=== PATIENT | male | born 1940 | race Caucasian/White ===

== ENCOUNTER 2018-04-05 14:08 | Inpatient (IN) | payer MEDICARE, OTHER ==
[2018-04-05] MEDS ORDERED: Bisacodyl 10 MG Supp RECTAL PRN (20:17)
[2018-04-05] MEDS ORDERED: Magnesium Hydroxide 400 MG/5 ML Susp 30 ML Cup PO PRN (20:17)
--- NOTE | 2018-04-05 20:33 | PCM.HP ---
H&P History of Present Illness - General Date of Service: 04/05/18 Admit Problem/Dx: Admission Diagnosis/Problem Admission Diagnosis/Problem Back pain Source of Information: Patient History Limitations: Reports: No Limitations - History of Present Illness Initial Comments - Free Text/Narative: 77-year-old male with a past medical history of atrial fibrillation, lumbar stenosis who recently had a lumbar laminectomy at [facility] in [place] and was admitted for continued physical therapy and occupational therapy as a swing bed patient. He complains of neck pain, located in the mid back a lot around the waistline. Pain is 7/10, sharp, intermittent. He has no chest pain, no shortness of breath, no leg swelling. Quality: Reports: Sharp Severity: Moderate Context: Reports: Other (Recent surgery) - Related Data Allergies/Adverse Reactions: Allergies Allergy/AdvReac Type Severity Reaction Status Date / Time No Known Allergies Allergy Unverified 04/28/15 15:07 Home Medications: Home Meds Digoxin 125 mcg PO DAILY 03/20/18 [History] Docusate Sodium 200 mg PO BID 03/20/18 [History] Simvastatin [Zocor] 40 mg PO BEDTIME 03/20/18 [History] Warfarin [Coumadin] 3 mg PO DAILY 03/20/18 [History] Acetaminophen [Tylenol] 650 mg PO Q4H PRN 04/05/18 [History] Amoxicillin/Clavulanate K [Augmentin 875-125 MG] 1 tab PO Q12HR 04/05/18 [ History] Aspirin 81 mg PO DAILY 04/05/18 [History] Bisacodyl 10 mg RECTAL DAILY PRN 04/05/18 [History] ClonazePAM [KlonoPIN] 0.5 mg PO BEDTIME 04/05/18 [History] Levothyroxine [Synthroid] 50 mcg PO ACBREAKFAST 04/05/18 [History] Magnesium Hydroxide [Milk of Magnesia] 30 ml PO DAILY PRN 04/05/18 [History] Metoprolol Succinate 75 mg PO BID 04/05/18 [History] Pantoprazole Sodium [Protonix] 40 mg PO ACBREAKFAST 04/05/18 [History] Polyethylene Glycol 3350 [MiraLAX] 17 gm PO DAILY 04/05/18 [History] QUEtiapine [SEROquel] 50 mg PO QPM 04/05/18 [History] Sennosides/Docusate Sodium [Senna-Docusate Sodium] 2 tab PO BEDTIME 04/05/18 [ History] oxyCODONE 5 mg PO Q4HR PRN 04/05/18 [History] Past Medical History Cardiovascular History: Reports: Afib, Heart Failure, Heart Murmur, High Cholesterol, [place] Neurological History: Reports: Other (See Below) Other Neuro History: acute confusion Endocrine/Metabolic History: Reports: Hypothyroidism - Past Surgical History Endocrine Surgical History: Reports: None Neurological Surgical History: Reports: Laminectomy, Lumbar Spine, Spinal Fusion Musculoskeletal Surgical History: Reports: Other (See Below) Other Musculoskeletal Surgeries/Procedures:: lumbar laminectomy and fusion. Social & Family History - Family History Family Medical History: Noncontributory - Tobacco Use Smoking Status *Q: Never Smoker Second Hand Smoke Exposure: No - Caffeine Use Caffeine Use: Reports: Coffee - Recreational Drug Use Recreational Drug Use: No H&P Review of Systems - Review of Systems: Review Of Systems: See Below General: Reports: No Symptoms HEENT: Reports: No Symptoms Pulmonary: Reports: No Symptoms Cardiovascular: Reports: No Symptoms Gastrointestinal: Reports: No Symptoms Genitourinary: Reports: No Symptoms Musculoskeletal: Reports: Back Pain Exam - Exam Exam: See Below - Vital Signs Weight: 75.251 kg - Exam General: Alert, Oriented HEENT: Conjunctiva Clear Neck: Supple, Trachea Midline Lungs: Clear to Auscultation Cardiovascular: Regular Rate GI/Abdominal Exam: Normal Bowel Sounds Problem List Initiated/Reviewed/Updated: Yes Orders Last 24hrs: Active Orders 24 hr Category Date Time Status Patient Status [ADT] Routine ADT 04/05/18 20:26 Ordered Ambulate [RC] ASDIRECTED Care 04/05/18 20:24 Ordered Bedrest Bathroom Privileges [RC] ASDIRECTED Care 04/05/18 20:24 Ordered Oxygen Therapy [RC] PRN Care 04/05/18 20:26 Ordered Up With Assistance [RC] ASDIRECTED Care 04/05/18 20:24 Ordered Up ad Kay [RC] ASDIRECTED Care 04/05/18 20:24 Ordered Up to Chair [RC] ASDIRECTED Care 04/05/18 20:24 Ordered VTE/DVT Education [RC] PER UNIT ROUTINE Care 04/05/18 20:26 Ordered Vital Signs [RC] PER UNIT ROUTINE Care 04/05/18 20:26 Ordered OT Evaluation and Treatment [CONS] Routine Cons 04/05/18 20:24 Ordered PT Evaluation and Treatment [CONS] Routine Cons 04/05/18 20:24 Ordered Regular Diet [DIET] Diet 04/05/18 Dinner Ordered Acetaminophen [Tylenol] Med 04/05/18 20:17 Ordered 650 mg PO Q4H PRN Acetaminophen [Tylenol] Med 04/05/18 21:00 Ordered 650 mg PO TID Amoxicillin/Clavulanate K [Augmentin 875 MG/125 MG] Med 04/05/18 21:00 Ordered 1 tab PO Q12HR Aspirin Med 04/06/18 09:00 Ordered 81 mg PO DAILY Bisacodyl [Dulcolax] Med 04/05/18 20:17 Ordered 10 mg RECTAL DAILY PRN Digoxin [Lanoxin] Med 04/06/18 09:00 Ordered 125 mcg PO DAILY Docusate Sodium [Colace] Med 04/05/18 21:00 Ordered 200 mg PO BID Docusate Sodium/Sennosides [Senna Plus] Med 04/05/18 21:00 Ordered 2 tab PO BEDTIME Ibuprofen [Motrin] Med 04/05/18 20:21 Ordered 400 mg PO Q8H PRN Levothyroxine [Synthroid] Med 04/06/18 06:00 Ordered 50 mcg PO ACBREAKFAST Lidocaine 5% [Lidoderm 5%] Med 04/05/18 20:30 Ordered 700 mg TOP Q24H Magnesium Hydroxide [Milk of Magnesia] Med 04/05/18 20:17 Ordered 30 ml PO DAILY PRN Metoprolol Succinate [Toprol XL] Med 04/05/18 21:00 Ordered 75 mg PO BID Pantoprazole [ProTONIX] Med 04/06/18 06:00 Ordered 40 mg PO ACBREAKFAST Polyethylene Glycol 3350 [MiraLAX] Med 04/06/18 09:00 Ordered 17 gm PO DAILY QUEtiapine [SEROquel] Med 04/05/18 20:30 Ordered 50 mg PO QPM Simvastatin [Zocor] Med 04/05/18 21:00 Ordered 40 mg PO BEDTIME Warfarin Med 04/06/18 09:00 Ordered 3 mg PO DAILY oxyCODONE Med 04/05/18 20:17 Ordered 5 mg PO Q4HR PRN Resuscitation Status Routine Resus Stat 04/05/18 20:24 Ordered Medication Orders Acetaminophen (Tylenol) 650 mg PO Q4H PRN PRN Reason: Pain Acetaminophen (Tylenol) 650 mg PO TID [facility] Amoxicillin/Clavulanate Potassium (Augmentin 875 Mg/125 Mg) 1 tab PO Q12HR [facility] Aspirin (Aspirin) 81 mg PO DAILY [facility] Bisacodyl (Dulcolax) 10 mg RECTAL DAILY PRN PRN Reason: Constipation Digoxin (Lanoxin) 125 mcg PO DAILY [facility] Docusate Sodium (Colace) 200 mg PO BID [facility] Ibuprofen (Motrin) 400 mg PO Q8H PRN PRN Reason: Pain (moderate 4-6) Levothyroxine Sodium (Synthroid) 50 mcg PO ACBREAKFAST [facility] Lidocaine (Lidoderm 5%) 700 mg TOP Q24H [facility] Magnesium Hydroxide (Milk Of Magnesia) 30 ml PO DAILY PRN PRN Reason: Constipation Metoprolol Succinate (Toprol Xl) 75 mg PO BID [facility] Non-Formulary Medication (Warfarin) 3 mg PO DAILY [facility] Oxycodone HCl (Oxycodone) 5 mg PO Q4HR PRN PRN Reason: Pain Pantoprazole Sodium (Protonix) 40 mg PO ACBREAKFAST [facility] Polyethylene Glycol (Miralax) 17 gm PO DAILY [facility] Quetiapine Fumarate (Seroquel) 50 mg PO QPM [facility] Senna/Docusate Sodium (Senna Plus) 2 tab PO BEDTIME [facility] Simvastatin (Zocor) 40 mg PO BEDTIME [facility] Assessment/Plan Comment:: 77-year-old male with past medical history of atrial fibrillation, lumbar stenosis status post laminectomy admitted as an outpatient. #Back pain; lumbar stenosis status post recent laminectomy Continue current pain regimen - when necessary Tylenol, when necessary oxycodone Add lidocaine patch Continue PT/OT #Atrial fibrillation Currently rate controlled, continue metoprolol plus digoxin regimen. Anticoagulation: Continue Coumadin #DVT prophylaxis On Coumadin
[2018-04-05] MEDS: oxyCODONE 5 MG Tab PO PRN (21:01)
[2018-04-05] MEDS: Amoxicillin/Clavulanate K 875-125 MG Tab PO SCH (21:33)
[2018-04-05] MEDS: QUEtiapine 25 MG Tab PO SCH (21:34)
[2018-04-05] MEDS: Docusate Sodium 100 MG Cap PO SCH (21:34)
[2018-04-05] MEDS: Acetaminophen 325 MG Tab PO SCH (21:35)
[2018-04-05] MEDS: Simvastatin 40 MG Tab PO SCH (21:36)
[2018-04-05] MEDS: Metoprolol Succinate 25 MG Tab.ER PO SCH (21:37)
[2018-04-05] MEDS: Lidocaine 5% 700 MG Patch TOP SCH (21:39)
[2018-04-06] MEDS: oxyCODONE 5 MG Tab PO PRN ×5 (01:16→21:29)
[2018-04-06] MEDS: Ibuprofen 400 MG Tab PO PRN ×3 (02:52→23:25)
[2018-04-06] MEDS: Levothyroxine 50 MCG Tab PO SCH (05:39)
[2018-04-06] MEDS: Pantoprazole 40 MG Tab.CR PO SCH (05:39)
[2018-04-06] MEDS: Aspirin 81 MG Tab.Chew PO SCH (08:40)
[2018-04-06] MEDS: Digoxin 125 MCG Tab PO SCH (08:42)
[2018-04-06] MEDS: Acetaminophen 325 MG Tab PO SCH ×3 (08:42→20:46)
[2018-04-06] MEDS: Amoxicillin/Clavulanate K 875-125 MG Tab PO SCH ×2 (08:45→20:42)
[2018-04-06] MEDS: Polyethylene Glycol 3350 Powder 17 GM Packet PO SCH (08:45)
[2018-04-06] MEDS: Metoprolol Succinate 25 MG Tab.ER PO SCH ×2 (08:45→20:44)
[2018-04-06] MEDS: Docusate Sodium 100 MG Cap PO SCH ×2 (08:45→20:43)
[2018-04-06] MEDS: Cyclobenzaprine 10 MG Tab PO PRN ×2 (11:42→20:44)
[2018-04-06] MEDS: Lidocaine 5% 700 MG Patch TOP SCH (20:40)
[2018-04-06] MEDS: QUEtiapine 25 MG Tab PO SCH (20:43)
[2018-04-06] MEDS: Simvastatin 40 MG Tab PO SCH (20:44)
[2018-04-07] MEDS: oxyCODONE 5 MG Tab PO PRN ×5 (02:04→22:31)
[2018-04-07] MEDS: Acetaminophen 325 MG Tab PO PRN (04:55)
[2018-04-07] MEDS: Levothyroxine 50 MCG Tab PO SCH (05:00)
[2018-04-07] MEDS: Pantoprazole 40 MG Tab.CR PO SCH (05:00)
[2018-04-07] MEDS: Digoxin 125 MCG Tab PO SCH (09:02)
[2018-04-07] MEDS: Amoxicillin/Clavulanate K 875-125 MG Tab PO SCH ×2 (09:02→20:58)
[2018-04-07] MEDS: Acetaminophen 325 MG Tab PO SCH ×3 (09:02→20:56)
[2018-04-07] MEDS: Aspirin 81 MG Tab.Chew PO SCH (09:02)
[2018-04-07] MEDS: Metoprolol Succinate 25 MG Tab.ER PO SCH ×2 (09:03→21:13)
[2018-04-07] MEDS: Cyclobenzaprine 10 MG Tab PO PRN ×2 (09:03→20:56)
[2018-04-07] MEDS: Docusate Sodium 100 MG Cap PO SCH ×2 (09:07→20:58)
[2018-04-07] MEDS: Polyethylene Glycol 3350 Powder 17 GM Packet PO SCH (09:07)
[2018-04-07] MEDS: Ibuprofen 200 MG Tab PO PRN (20:57)
[2018-04-07] MEDS: QUEtiapine 25 MG Tab PO SCH (20:57)
[2018-04-07] MEDS: Simvastatin 40 MG Tab PO SCH (20:57)
[2018-04-07] MEDS: Lidocaine 5% 700 MG Patch TOP SCH (21:09)
[2018-04-08] MEDS: Levothyroxine 50 MCG Tab PO SCH (05:24)
[2018-04-08] MEDS: oxyCODONE 5 MG Tab PO PRN ×4 (05:24→22:11)
[2018-04-08] MEDS: Pantoprazole 40 MG Tab.CR PO SCH (05:24)
[2018-04-08] MEDS: Polyethylene Glycol 3350 Powder 17 GM Packet PO SCH (09:45)
[2018-04-08] MEDS: Docusate Sodium 100 MG Cap PO SCH ×3 (09:45→20:45)
[2018-04-08] MEDS: Aspirin 81 MG Tab.Chew PO SCH (09:48)
[2018-04-08] MEDS: Acetaminophen 325 MG Tab PO SCH ×3 (09:48→20:43)
[2018-04-08] MEDS: Amoxicillin/Clavulanate K 875-125 MG Tab PO SCH ×2 (09:48→20:45)
[2018-04-08] MEDS: Digoxin 125 MCG Tab PO SCH (09:48)
[2018-04-08] MEDS: Capsaicin 0.025% Crm 60 GM Tube TOP SCH ×4 (12:15→20:46)
[2018-04-08] MEDS: Cyclobenzaprine 10 MG Tab PO PRN ×2 (12:43→23:43)
[2018-04-08] MEDS: Metoprolol Succinate 25 MG Tab.ER PO SCH ×2 (13:44→22:59)
[2018-04-08] MEDS: Ibuprofen 200 MG Tab PO PRN ×2 (15:37→23:42)
[2018-04-08] MEDS: Simvastatin 40 MG Tab PO SCH (20:43)
[2018-04-08] MEDS: QUEtiapine 25 MG Tab PO SCH (20:44)
[2018-04-08] MEDS: Lidocaine 5% 700 MG Patch TOP SCH (20:46)
[2018-04-08] MEDS: MELATONIN 5 MG PO PRN (22:57)
[2018-04-09] MEDS: oxyCODONE 5 MG Tab PO PRN ×3 (02:36→17:22)
[2018-04-09] MEDS: Levothyroxine 50 MCG Tab PO SCH (05:35)
[2018-04-09] MEDS: Pantoprazole 40 MG Tab.CR PO SCH (05:35)
[2018-04-09] MEDS: Digoxin 125 MCG Tab PO SCH (09:07)
[2018-04-09] MEDS: Aspirin 81 MG Tab.Chew PO SCH (09:07)
[2018-04-09] MEDS: Acetaminophen 325 MG Tab PO SCH ×3 (09:08→20:38)
[2018-04-09] MEDS: Polyethylene Glycol 3350 Powder 17 GM Packet PO SCH (09:10)
[2018-04-09] MEDS: Docusate Sodium 100 MG Cap PO SCH ×2 (09:11→20:35)
[2018-04-09] MEDS: Metoprolol Succinate 25 MG Tab.ER PO SCH ×2 (09:11→20:36)
[2018-04-09] MEDS: Capsaicin 0.025% Crm 60 GM Tube TOP SCH ×4 (09:14→20:53)
--- NOTE | 2018-04-09 10:45 | PCM.PN ---
- General Info Date of Service: 04/09/18 Admission Dx/Problem (Free Text): Admission Diagnosis/Problem Admission Diagnosis/Problem Back pain Subjective Update: 77-year-old male with a past medical history of atrial fibrillation, lumbar stenosis who recently had a lumbar laminectomy at [facility] in [place] and was admitted for continued physical therapy and occupational therapy as a swing bed patient. Complains of back pain, worse with movement. - Review of Systems General: Denies: Fever Pulmonary: Denies: Shortness of Breath, Cough Cardiovascular: Denies: Chest Pain Gastrointestinal: Denies: Abdominal Pain Genitourinary: Denies: Dysuria Musculoskeletal: Reports: Back Pain - Patient Data Vitals - Most Recent: Last Vital Signs Temp 36.4 C 04/09/18 07:27 Pulse 76 04/09/18 09:11 Resp 18 04/09/18 07:27 BP 167/79 H 04/09/18 09:11 Pulse Ox 96 04/09/18 07:27 Weight - Most Recent: 79.56 kg I&O - Last 24 Hours: Intake & Output 04/08/18 04/09/18 04/09/18 22:59 06:59 14:59 Intake Total 510 400 Balance 510 400 Med Orders - Current: Current Medications Acetaminophen (Tylenol) 650 mg PO Q4H PRN PRN Reason: Pain Last Admin: 04/07/18 04:55 Dose: 650 mg Acetaminophen (Tylenol) 650 mg PO TID [facility] Last Admin: 04/09/18 09:08 Dose: 650 mg Amoxicillin/Clavulanate Potassium (Augmentin 875 Mg/125 Mg) 1 tab PO Q12HR [facility] Last Admin: 04/08/18 20:45 Dose: 1 tab Aspirin (Aspirin) 81 mg PO DAILY [facility] Last Admin: 04/09/18 09:07 Dose: 81 mg Bisacodyl (Dulcolax) 10 mg RECTAL DAILY PRN PRN Reason: Constipation Capsaicin (Zostrix 0.025% Crm) 0 gm TOP QID [facility] Last Admin: 04/09/18 09:14 Dose: 1 applic Cyclobenzaprine HCl (Flexeril) 5 mg PO TID PRN PRN Reason: Spasms Last Admin: 04/08/18 23:43 Dose: 5 mg Digoxin (Lanoxin) 125 mcg PO DAILY [facility] Last Admin: 04/09/18 09:07 Dose: 125 mcg Docusate Sodium (Colace) 200 mg PO BID [facility] Last Admin: 04/09/18 09:11 Dose: Not Given Ibuprofen (Motrin) 400 mg PO Q8H PRN PRN Reason: Pain (moderate 4-6) Last Admin: 04/08/18 23:42 Dose: 400 mg Levothyroxine Sodium (Synthroid) 50 mcg PO ACBREAKFAST [facility] Last Admin: 04/09/18 05:35 Dose: 50 mcg Lidocaine (Lidoderm 5%) 700 mg TOP Q24H [facility] Last Admin: 04/08/18 20:46 Dose: 700 mg Magnesium Hydroxide (Milk Of Magnesia) 30 ml PO DAILY PRN PRN Reason: Constipation Metoprolol Succinate (Toprol Xl) 75 mg PO BID [facility] Last Admin: 04/09/18 09:11 Dose: 75 mg Miscellaneous Information (Remove Patch) 1 ea TRDERM Q24H [facility] Last Admin: 04/09/18 09:10 Dose: 1 ea Melatonin 5mg (Own Med) 1 each PO BEDTIME PRN PRN Reason: Sleep Last Admin: 04/08/18 22:57 Dose: 1 each Oxycodone HCl (Oxycodone) 5 mg PO Q4HR PRN PRN Reason: Pain Last Admin: 04/09/18 02:36 Dose: 5 mg Pantoprazole Sodium (Protonix) 40 mg PO ACBREAKFAST [facility] Last Admin: 04/09/18 05:35 Dose: 40 mg Polyethylene Glycol (Miralax) 17 gm PO DAILY [facility] Last Admin: 04/09/18 09:10 Dose: Not Given Quetiapine Fumarate (Seroquel) 50 mg PO BEDTIME [facility] Last Admin: 04/08/18 20:44 Dose: 50 mg Senna/Docusate Sodium (Senna Plus) 2 tab PO BEDTIME [facility] Last Admin: 04/08/18 20:46 Dose: Not Given Simvastatin (Zocor) 40 mg PO BEDTIME [facility] Last Admin: 04/08/18 20:43 Dose: 40 mg Warfarin Sodium (Coumadin) 3 mg PO DAILY@1400 [facility] Last Admin: 04/08/18 13:45 Dose: 3 mg Discontinued Medications Ibuprofen (Motrin) 400 mg PO Q8H PRN PRN Reason: Pain (moderate 4-6) Last Admin: 04/06/18 23:25 Dose: 400 mg - Exam General: Alert, Oriented HEENT: Pupils Equal Neck: Supple Lungs: Clear to Auscultation Cardiovascular: Regular Rate, Regular Rhythm GI/Abdominal Exam: Normal Bowel Sounds - Problem List Review Problem List Initiated/Reviewed/Updated: Yes - My Orders Last 24 Hours: My Active Orders 04/08/18 09:57 Capsaicin [Zostrix 0.025% Crm] See Dose Instructions TOP QID 04/08/18 21:03 Non-Formulary Medication [NF Drug] 1 each PO BEDTIME PRN 04/08/18 21:04 RT Incentive Spirometry [RC] ASDIRECTED - Plan Plan:: 77-year-old male with past medical history of atrial fibrillation, lumbar stenosis status post laminectomy admitted as an outpatient. #Back pain; lumbar stenosis status post recent laminectomy Continue current pain regimen - when necessary Tylenol, when necessary oxycodone Add lidocaine patch; add capsaicin cream for pain relief. Continue PT/OT #Atrial fibrillation Currently rate controlled, continue metoprolol plus digoxin regimen. Anticoagulation: Continue Coumadin #DVT prophylaxis On Coumadin
[2018-04-09] MEDS: Amoxicillin/Clavulanate K 875-125 MG Tab PO SCH (11:07)
[2018-04-09] MEDS: Cyclobenzaprine 10 MG Tab PO PRN (13:54)
[2018-04-09] MEDS: Ibuprofen 200 MG Tab PO PRN (17:23)
[2018-04-09] MEDS: QUEtiapine 25 MG Tab PO SCH (20:38)
[2018-04-09] MEDS: Simvastatin 40 MG Tab PO SCH (20:39)
[2018-04-09] MEDS: Lidocaine 5% 700 MG Patch TOP SCH (20:52)
[2018-04-10] MEDS: Cyclobenzaprine 10 MG Tab PO PRN ×2 (01:14→22:53)
[2018-04-10] MEDS: Ibuprofen 200 MG Tab PO PRN ×2 (01:18→18:08)
[2018-04-10] MEDS: oxyCODONE 5 MG Tab PO PRN ×5 (03:16→23:58)
[2018-04-10] MEDS: Levothyroxine 50 MCG Tab PO SCH (05:35)
[2018-04-10] MEDS: Pantoprazole 40 MG Tab.CR PO SCH (05:35)
[2018-04-10] MEDS: Acetaminophen 325 MG Tab PO PRN (06:16)
[2018-04-10] MEDS: Aspirin 81 MG Tab.Chew PO SCH (10:37)
[2018-04-10] MEDS: Digoxin 125 MCG Tab PO SCH (10:38)
[2018-04-10] MEDS: Docusate Sodium 100 MG Cap PO SCH ×2 (10:38→21:37)
[2018-04-10] MEDS: Polyethylene Glycol 3350 Powder 17 GM Packet PO SCH (10:39)
[2018-04-10] MEDS: Acetaminophen 325 MG Tab PO SCH ×3 (10:40→21:33)
[2018-04-10] MEDS: Metoprolol Succinate 25 MG Tab.ER PO SCH ×2 (10:40→21:34)
[2018-04-10] MEDS: Capsaicin 0.025% Crm 60 GM Tube TOP SCH ×4 (10:44→21:51)
[2018-04-10] MEDS: QUEtiapine 25 MG Tab PO SCH (21:34)
[2018-04-10] MEDS: Simvastatin 40 MG Tab PO SCH (21:35)
[2018-04-10] MEDS: Lidocaine 5% 700 MG Patch TOP SCH (21:48)
[2018-04-10] MEDS: MELATONIN 5 MG PO PRN (21:58)
[2018-04-11] MEDS: Ibuprofen 200 MG Tab PO PRN ×3 (02:06→20:10)
[2018-04-11] MEDS: oxyCODONE 5 MG Tab PO PRN ×5 (04:31→21:15)
[2018-04-11] MEDS: Acetaminophen 325 MG Tab PO PRN (05:14)
[2018-04-11] MEDS: Pantoprazole 40 MG Tab.CR PO SCH (05:14)
[2018-04-11] MEDS: Levothyroxine 50 MCG Tab PO SCH (05:14)
[2018-04-11] MEDS: Digoxin 125 MCG Tab PO SCH (08:33)
[2018-04-11] MEDS: Acetaminophen 325 MG Tab PO SCH ×3 (08:34→21:13)
[2018-04-11] MEDS: Aspirin 81 MG Tab.Chew PO SCH (08:37)
[2018-04-11] MEDS: Polyethylene Glycol 3350 Powder 17 GM Packet PO SCH ×2 (10:20→10:35)
[2018-04-11] MEDS: Docusate Sodium 100 MG Cap PO SCH ×2 (10:34→21:10)
[2018-04-11] MEDS: Capsaicin 0.025% Crm 60 GM Tube TOP SCH (10:37)
[2018-04-11] MEDS: Metoprolol Succinate 25 MG Tab.ER PO SCH ×2 (11:04→21:12)
[2018-04-11] MEDS: Lidocaine 5% 700 MG Patch TOP SCH (11:24)
[2018-04-11] MEDS: Cyclobenzaprine 10 MG Tab PO PRN ×2 (15:18→22:53)
[2018-04-11] MEDS: Simvastatin 40 MG Tab PO SCH (21:11)
[2018-04-11] MEDS: QUEtiapine 25 MG Tab PO SCH (21:12)
[2018-04-11] MEDS: MELATONIN 5 MG PO PRN (21:13)
[2018-04-12] MEDS: oxyCODONE 5 MG Tab PO PRN ×4 (01:09→17:45)
[2018-04-12] MEDS: Acetaminophen 325 MG Tab PO PRN (01:11)
[2018-04-12] MEDS: Levothyroxine 50 MCG Tab PO SCH (06:37)
[2018-04-12] MEDS: Pantoprazole 40 MG Tab.CR PO SCH (06:37)
[2018-04-12] MEDS: Metoprolol Succinate 25 MG Tab.ER PO SCH ×2 (09:57→21:45)
[2018-04-12] MEDS: Lidocaine 5% 700 MG Patch TOP SCH (09:59)
[2018-04-12] MEDS: Aspirin 81 MG Tab.Chew PO SCH (10:00)
[2018-04-12] MEDS: Acetaminophen 325 MG Tab PO SCH ×3 (10:00→21:46)
[2018-04-12] MEDS: Digoxin 125 MCG Tab PO SCH (10:01)
[2018-04-12] MEDS: Polyethylene Glycol 3350 Powder 17 GM Packet PO SCH (10:01)
[2018-04-12] MEDS: Docusate Sodium 100 MG Cap PO SCH ×2 (10:01→21:44)
[2018-04-12] MEDS: Cyclobenzaprine 10 MG Tab PO PRN (14:03)
[2018-04-12] MEDS: Ibuprofen 200 MG Tab PO PRN (19:51)
[2018-04-12] MEDS: MELATONIN 5 MG PO PRN (19:53)
[2018-04-12] MEDS: QUEtiapine 25 MG Tab PO SCH (21:44)
[2018-04-12] MEDS: Simvastatin 40 MG Tab PO SCH (21:44)
[2018-04-13] MEDS: oxyCODONE 5 MG Tab PO PRN ×4 (01:27→20:01)
[2018-04-13] MEDS: Acetaminophen 325 MG Tab PO PRN (01:28)
[2018-04-13] MEDS: Levothyroxine 50 MCG Tab PO SCH (05:34)
[2018-04-13] MEDS: Pantoprazole 40 MG Tab.CR PO SCH (05:35)
[2018-04-13] MEDS: Lidocaine 5% 700 MG Patch TOP SCH (08:40)
[2018-04-13] MEDS: Metoprolol Succinate 25 MG Tab.ER PO SCH ×2 (08:41→21:03)
[2018-04-13] MEDS: Digoxin 125 MCG Tab PO SCH (08:41)
[2018-04-13] MEDS: Docusate Sodium 100 MG Cap PO SCH ×2 (08:41→21:05)
[2018-04-13] MEDS: Polyethylene Glycol 3350 Powder 17 GM Packet PO SCH (08:41)
[2018-04-13] MEDS: Acetaminophen 325 MG Tab PO SCH ×3 (08:42→21:06)
[2018-04-13] MEDS: Aspirin 81 MG Tab.Chew PO SCH (08:42)
[2018-04-13] MEDS: Cyclobenzaprine 10 MG Tab PO PRN ×2 (08:43→15:29)
[2018-04-13] MEDS: Menthol/Methyl Salicylate 85 GM Tube TOP SCH ×2 (12:18→21:08)
[2018-04-13] MEDS: Lidocaine 5% Oint 35.44 GM Tube TOP SCH ×2 (12:19→21:09)
[2018-04-13] MEDS: MELATONIN 5 MG PO PRN (21:03)
[2018-04-13] MEDS: Simvastatin 40 MG Tab PO SCH (21:04)
[2018-04-13] MEDS: QUEtiapine 25 MG Tab PO SCH (21:05)
[2018-04-14] MEDS ORDERED: Haloperidol Lactate 5 MG/ML SDV IM STA (01:56)
[2018-04-14] MEDS: Ibuprofen 200 MG Tab PO PRN ×3 (03:52→22:04)
[2018-04-14] MEDS: oxyCODONE 5 MG Tab PO PRN (03:53)
[2018-04-14] MEDS: Levothyroxine 50 MCG Tab PO SCH (05:04)
[2018-04-14] MEDS: Pantoprazole 40 MG Tab.CR PO SCH (05:04)
[2018-04-14] MEDS: Aspirin 81 MG Tab.Chew PO SCH (09:15)
[2018-04-14] MEDS: Docusate Sodium 100 MG Cap PO SCH ×2 (09:15→20:36)
[2018-04-14] MEDS: Menthol/Methyl Salicylate 85 GM Tube TOP SCH ×2 (09:15→20:40)
[2018-04-14] MEDS: Lidocaine 5% Oint 35.44 GM Tube TOP SCH ×2 (09:17→20:40)
[2018-04-14] MEDS: Digoxin 125 MCG Tab PO SCH (09:18)
[2018-04-14] MEDS: Polyethylene Glycol 3350 Powder 17 GM Packet PO SCH (09:18)
[2018-04-14] MEDS: Acetaminophen 325 MG Tab PO SCH ×3 (09:19→20:38)
[2018-04-14] MEDS: Metoprolol Succinate 25 MG Tab.ER PO SCH ×2 (09:20→20:35)
[2018-04-14] MEDS ORDERED: Aluminum Hydroxide/Magnesium Hydroxide/Simethicone Susp 30 ML Cup PO PRN (12:48)
[2018-04-14] MEDS: Cyclobenzaprine 10 MG Tab PO PRN ×2 (13:10→22:03)
[2018-04-14] MEDS: QUEtiapine 25 MG Tab PO SCH (20:36)
[2018-04-14] MEDS: Simvastatin 40 MG Tab PO SCH (20:36)
[2018-04-14] MEDS: MELATONIN 5 MG PO SCH (20:40)
[2018-04-15] MEDS: Pantoprazole 40 MG Tab.CR PO SCH (05:49)
[2018-04-15] MEDS: Ibuprofen 200 MG Tab PO PRN (05:49)
[2018-04-15] MEDS: Levothyroxine 50 MCG Tab PO SCH (05:49)
[2018-04-15] MEDS: Aspirin 81 MG Tab.Chew PO SCH (10:30)
[2018-04-15] MEDS: Metoprolol Succinate 25 MG Tab.ER PO SCH (10:30)
[2018-04-15] MEDS: Digoxin 125 MCG Tab PO SCH (10:30)
[2018-04-15] MEDS: Docusate Sodium 100 MG Cap PO SCH (10:30)
[2018-04-15] MEDS: Acetaminophen 325 MG Tab PO SCH ×2 (10:30→14:23)
[2018-04-15] MEDS: Polyethylene Glycol 3350 Powder 17 GM Packet PO SCH (10:30)
[2018-04-15] MEDS: Menthol/Methyl Salicylate 85 GM Tube TOP SCH (10:31)
[2018-04-15] MEDS: Lidocaine 5% Oint 35.44 GM Tube TOP SCH (10:31)
[2018-04-16] MEDS: Menthol/Methyl Salicylate 85 GM Tube TOP SCH ×3 (02:07→20:39)
[2018-04-16] MEDS: Lidocaine 5% Oint 35.44 GM Tube TOP SCH ×3 (02:07→20:40)
[2018-04-16] MEDS: Docusate Sodium 100 MG Cap PO SCH ×3 (02:07→20:39)
[2018-04-16] MEDS: MELATONIN 5 MG PO SCH ×2 (02:08→20:48)
[2018-04-16] MEDS: QUEtiapine 25 MG Tab PO SCH ×2 (02:08→20:53)
[2018-04-16] MEDS: oxyCODONE 5 MG Tab PO PRN (02:17)
[2018-04-16] MEDS: Acetaminophen 325 MG Tab PO SCH ×4 (02:22→20:40)
[2018-04-16] MEDS: Metoprolol Succinate 25 MG Tab.ER PO SCH ×3 (02:22→20:42)
[2018-04-16] MEDS: Simvastatin 40 MG Tab PO SCH ×2 (02:22→20:42)
[2018-04-16] MEDS: Levothyroxine 50 MCG Tab PO SCH (06:21)
[2018-04-16] MEDS: Pantoprazole 40 MG Tab.CR PO SCH (06:21)
[2018-04-16] MEDS: Aspirin 81 MG Tab.Chew PO SCH (09:03)
[2018-04-16] MEDS: Digoxin 125 MCG Tab PO SCH (09:03)
[2018-04-16] MEDS: Polyethylene Glycol 3350 Powder 17 GM Packet PO SCH (09:03)
[2018-04-17] MEDS: Ibuprofen 200 MG Tab PO PRN ×3 (01:12→22:15)
[2018-04-17] MEDS: Cyclobenzaprine 10 MG Tab PO PRN ×2 (01:13→22:15)
[2018-04-17] MEDS: Acetaminophen 325 MG Tab PO PRN (02:47)
[2018-04-17] MEDS: Levothyroxine 50 MCG Tab PO SCH (06:09)
[2018-04-17] MEDS: Pantoprazole 40 MG Tab.CR PO SCH (06:09)
[2018-04-17] MEDS: Digoxin 125 MCG Tab PO SCH (08:56)
[2018-04-17] MEDS: Polyethylene Glycol 3350 Powder 17 GM Packet PO SCH (08:57)
[2018-04-17] MEDS: Docusate Sodium 100 MG Cap PO SCH ×2 (08:57→20:59)
[2018-04-17] MEDS: Metoprolol Succinate 25 MG Tab.ER PO SCH ×2 (08:59→21:00)
[2018-04-17] MEDS: Aspirin 81 MG Tab.Chew PO SCH (09:01)
[2018-04-17] MEDS: Acetaminophen 325 MG Tab PO SCH ×3 (09:02→20:58)
[2018-04-17] MEDS: Menthol/Methyl Salicylate 85 GM Tube TOP SCH ×2 (09:04→20:56)
[2018-04-17] MEDS: Lidocaine 5% Oint 35.44 GM Tube TOP SCH ×2 (09:06→20:56)
[2018-04-17] MEDS ORDERED: Simethicone 80 MG Tab.Chew PO PRN (18:49)
[2018-04-17] MEDS: MELATONIN 5 MG PO SCH (20:57)
[2018-04-17] MEDS: Simvastatin 40 MG Tab PO SCH (20:59)
[2018-04-17] MEDS: QUEtiapine 25 MG Tab PO SCH (21:00)
--- NOTE | 2018-04-17 23:09 | PCM.PN ---
- General Info Date of Service: 04/17/18 Subjective Update: Patient had episodes of hallucinations which he describes that he is being put inside the freezer. he is being tapered off benzodiapezines and his oxycodone was discontinued. no new complaints. Functional Status: Reports: Tolerating Diet - Patient Data Vitals - Most Recent: Last Vital Signs Temp 98.4 F 04/17/18 15:55 Pulse 85 04/17/18 21:00 Resp 20 04/17/18 15:55 BP 155/70 H 04/17/18 21:00 Pulse Ox 99 04/17/18 15:55 Weight - Most Recent: 174 lb I&O - Last 24 Hours: Intake & Output 04/17/18 04/17/18 04/18/18 14:59 22:59 06:59 Intake Total 600 800 Balance 600 800 Lab Results Last 24 Hours: Laboratory Results - last 24 hr 04/17/18 Range/Units 06:02 PT 18.9 H (9.0-12.0) SEC INR 1.9 H (0.9-1.2) Med Orders - Current: Current Medications Acetaminophen (Tylenol) 650 mg PO Q4H PRN PRN Reason: Pain Last Admin: 04/17/18 02:47 Dose: 650 mg Acetaminophen (Tylenol) 650 mg PO TID [facility] Last Admin: 04/17/18 20:58 Dose: 650 mg Al Hydroxide/Mg Hydroxide (Mag-Al Plus) 30 ml PO BID PRN PRN Reason: Gas Last Admin: 04/14/18 13:14 Dose: 30 ml Aspirin (Aspirin) 81 mg PO DAILY [facility] Last Admin: 04/17/18 09:01 Dose: 81 mg Bisacodyl (Dulcolax) 10 mg RECTAL DAILY PRN PRN Reason: Constipation Cyclobenzaprine HCl (Flexeril) 2.5 mg PO TID PRN PRN Reason: Spasms Last Admin: 04/17/18 22:15 Dose: 2.5 mg Digoxin (Lanoxin) 125 mcg PO DAILY [facility] Last Admin: 04/17/18 08:56 Dose: 125 mcg Docusate Sodium (Colace) 200 mg PO BID [facility] Last Admin: 04/17/18 20:59 Dose: 200 mg Ibuprofen (Motrin) 400 mg PO Q8H PRN PRN Reason: Pain (moderate 4-6) Last Admin: 04/17/18 22:15 Dose: 400 mg Levothyroxine Sodium (Synthroid) 50 mcg PO ACBREAKFAST [facility] Last Admin: 04/17/18 06:09 Dose: 50 mcg Lidocaine HCl (Lidocaine 5%) 0 gm TOP BID [facility] Last Admin: 04/17/18 20:56 Dose: 1 applic Magnesium Hydroxide (Milk Of Magnesia) 30 ml PO DAILY PRN PRN Reason: Constipation Methyl Salicylate (Icy Hot Cream) 0 gm TOP BID [facility] Last Admin: 04/17/18 20:56 Dose: 1 applic Metoprolol Succinate (Toprol Xl) 75 mg PO BID [facility] Last Admin: 04/17/18 21:00 Dose: 75 mg Melatonin 5mgOwn (Med) 1 each PO BEDTIME [facility] Last Admin: 04/17/18 20:57 Dose: 1 each Pantoprazole Sodium (Protonix) 40 mg PO ACBREAKFAST [facility] Last Admin: 04/17/18 06:09 Dose: 40 mg Polyethylene Glycol (Miralax) 17 gm PO DAILY [facility] Last Admin: 04/17/18 08:57 Dose: Not Given Quetiapine Fumarate (Seroquel) 50 mg PO BEDTIME [facility] Last Admin: 04/17/18 21:00 Dose: 50 mg Senna/Docusate Sodium (Senna Plus) 2 tab PO BEDTIME [facility] Last Admin: 04/17/18 21:03 Dose: Not Given Simethicone (Simethicone) 80 mg PO BID PRN PRN Reason: Abdominal Pain Simvastatin (Zocor) 40 mg PO BEDTIME [facility] Last Admin: 04/17/18 20:59 Dose: 40 mg Warfarin Sodium (Pharmacy To Dose - Warfarin) 1 dose .XX ASDIRECTED [facility] Discontinued Medications Amoxicillin/Clavulanate Potassium (Augmentin 875 Mg/125 Mg) 1 tab PO Q12HR [facility] Last Admin: 04/09/18 11:07 Dose: 1 tab Capsaicin (Zostrix 0.025% Crm) 0 gm TOP QID [facility] Last Admin: 04/11/18 10:37 Dose: Not Given Cyclobenzaprine HCl (Flexeril) 5 mg PO TID PRN PRN Reason: Spasms Last Admin: 04/14/18 22:03 Dose: 5 mg Haloperidol Lactate (Haldol) 2 mg IM ONETIME STA Stop: 04/14/18 01:57 Last Admin: 04/14/18 02:11 Dose: 2 mg Ibuprofen (Motrin) 400 mg PO Q8H PRN PRN Reason: Pain (moderate 4-6) Last Admin: 04/06/18 23:25 Dose: 400 mg Lidocaine (Lidoderm 5%) 700 mg TOP Q24H [facility] Last Admin: 04/10/18 21:48 Dose: 700 mg Lidocaine (Lidoderm 5%) 700 mg TOP DAILY [facility] Last Admin: 04/13/18 08:40 Dose: 700 mg Miscellaneous Information (Remove Patch) 1 ea TRDERM Q24H [facility] Last Admin: 04/11/18 08:42 Dose: 1 ea Miscellaneous Information (Remove Patch) 1 ea TRDERM BEDTIME [facility] Last Admin: 04/12/18 21:45 Dose: Not Given Melatonin 5mg (Own Med) 1 each PO BEDTIME PRN PRN Reason: Sleep Last Admin: 04/13/18 21:03 Dose: 1 each No Warfarin (Today ) 0 each PO ONETIME ONE Stop: 04/10/18 14:01 Last Admin: 04/10/18 14:22 Dose: Not Given No Warfarin (Today ) 0 each PO ONETIME ONE Stop: 04/11/18 14:01 Last Admin: 04/11/18 13:28 Dose: Not Given Oxycodone HCl (Oxycodone) 5 mg PO Q4HR PRN PRN Reason: Pain Last Admin: 04/16/18 02:17 Dose: 5 mg Warfarin Sodium (Coumadin) 3 mg PO DAILY@1400 [facility] Last Admin: 04/09/18 13:55 Dose: 3 mg Warfarin Sodium (Coumadin) 3 mg PO ONETIME ONE Stop: 04/12/18 14:01 Last Admin: 04/12/18 14:02 Dose: 3 mg Warfarin Sodium (Coumadin) 3 mg PO ONETIME ONE Stop: 04/13/18 14:01 Last Admin: 04/13/18 14:59 Dose: 3 mg Warfarin Sodium (Coumadin) 3 mg PO ONETIME ONE Stop: 04/16/18 14:01 Last Admin: 04/16/18 13:41 Dose: 3 mg Warfarin Sodium (Coumadin) 3 mg PO ONETIME ONE Stop: 04/17/18 14:01 Last Admin: 04/17/18 14:29 Dose: 3 mg - Problem List Review Problem List Initiated/Reviewed/Updated: Yes - My Orders Last 24 Hours: My Active Orders 04/17/18 16:30 ANA Hose [Antiembolic Hose] [OM.PC] Routine 04/17/18 18:49 Simethicone 80 mg PO BID PRN - Plan Plan:: 77-year-old male with past medical history of atrial fibrillation, lumbar stenosis status post laminectomy admitted as an outpatient. episodes of hallucinations - oxycodone discontinued - on low dose flexeril - continue to monitor episodes #Back pain; lumbar stenosis status post recent laminectomy Continue PT/OT #Atrial fibrillation Currently rate controlled, continue metoprolol plus digoxin regimen. Anticoagulation: Continue Coumadin #DVT prophylaxis On Coumadin
[2018-04-18] MEDS: Acetaminophen 325 MG Tab PO PRN (03:01)
[2018-04-18] MEDS: Levothyroxine 50 MCG Tab PO SCH (06:13)
[2018-04-18] MEDS: Pantoprazole 40 MG Tab.CR PO SCH (06:13)
[2018-04-18] MEDS: Acetaminophen 325 MG Tab PO SCH ×3 (08:40→20:27)
[2018-04-18] MEDS: Aspirin 81 MG Tab.Chew PO SCH (08:41)
[2018-04-18] MEDS: Metoprolol Succinate 25 MG Tab.ER PO SCH ×2 (08:41→20:27)
[2018-04-18] MEDS: Digoxin 125 MCG Tab PO SCH (08:42)
[2018-04-18] MEDS: Lidocaine 5% Oint 35.44 GM Tube TOP SCH ×3 (08:43→20:46)
[2018-04-18] MEDS: Menthol/Methyl Salicylate 85 GM Tube TOP SCH ×2 (08:44→20:26)
[2018-04-18] MEDS: Cyclobenzaprine 10 MG Tab PO PRN ×2 (09:24→20:27)
[2018-04-18] MEDS: Docusate Sodium 100 MG Cap PO SCH ×2 (09:34→20:26)
[2018-04-18] MEDS: Polyethylene Glycol 3350 Powder 17 GM Packet PO SCH (09:34)
[2018-04-18] MEDS: Ibuprofen 200 MG Tab PO PRN ×2 (10:11→20:28)
[2018-04-18] MEDS ORDERED: ClonazePAM 0.5 MG Tab PO ONE (13:27)
[2018-04-18] MEDS ORDERED: Docusate Sodium 100 MG Cap PO PRN (19:38)
[2018-04-18] MEDS: Simvastatin 40 MG Tab PO SCH (20:29)
[2018-04-18] MEDS: ClonazePAM 0.5 MG Tab PO SCH (20:29)
[2018-04-18] MEDS: MELATONIN 5 MG PO SCH (20:29)
[2018-04-18] MEDS: QUEtiapine 25 MG Tab PO SCH (20:30)
[2018-04-19] MEDS: Acetaminophen 325 MG Tab PO PRN (03:09)
[2018-04-19] MEDS: Pantoprazole 40 MG Tab.CR PO SCH (06:04)
[2018-04-19] MEDS: Levothyroxine 50 MCG Tab PO SCH (06:04)
[2018-04-19] MEDS: Acetaminophen 325 MG Tab PO SCH ×3 (08:07→20:37)
[2018-04-19] MEDS: Digoxin 125 MCG Tab PO SCH (08:09)
[2018-04-19] MEDS: Metoprolol Succinate 25 MG Tab.ER PO SCH ×2 (08:10→20:35)
[2018-04-19] MEDS: Aspirin 81 MG Tab.Chew PO SCH (08:10)
[2018-04-19] MEDS: Polyethylene Glycol 3350 Powder 17 GM Packet PO SCH ×2 (09:27)
[2018-04-19] MEDS: Docusate Sodium 100 MG Cap PO SCH ×2 (09:28→20:45)
[2018-04-19] MEDS: Menthol/Methyl Salicylate 85 GM Tube TOP SCH ×2 (10:23→20:45)
[2018-04-19] MEDS: Lidocaine 5% Oint 35.44 GM Tube TOP SCH ×2 (10:26→20:46)
[2018-04-19] MEDS: Ibuprofen 200 MG Tab PO PRN ×2 (10:58→22:03)
[2018-04-19] MEDS: Simvastatin 40 MG Tab PO SCH (20:36)
[2018-04-19] MEDS: ClonazePAM 0.5 MG Tab PO SCH (20:39)
[2018-04-19] MEDS: QUEtiapine 100 MG Tab PO SCH (20:42)
[2018-04-19] MEDS: MELATONIN 5 MG PO SCH (20:48)
[2018-04-20] MEDS: Acetaminophen 325 MG Tab PO PRN ×2 (02:20→12:22)
[2018-04-20] MEDS: Cyclobenzaprine 10 MG Tab PO PRN ×2 (02:27→12:21)
[2018-04-20] MEDS: Ibuprofen 200 MG Tab PO PRN ×2 (04:53→15:23)
[2018-04-20] MEDS: Levothyroxine 50 MCG Tab PO SCH (05:04)
[2018-04-20] MEDS: Pantoprazole 40 MG Tab.CR PO SCH (05:04)
[2018-04-20] MEDS: Aspirin 81 MG Tab.Chew PO SCH (08:01)
[2018-04-20] MEDS: Docusate Sodium 100 MG Cap PO SCH ×2 (08:02→20:40)
[2018-04-20] MEDS: Acetaminophen 325 MG Tab PO SCH ×3 (08:02→20:50)
[2018-04-20] MEDS: Metoprolol Succinate 25 MG Tab.ER PO SCH ×2 (08:03→20:45)
[2018-04-20] MEDS: Digoxin 125 MCG Tab PO SCH (08:04)
[2018-04-20] MEDS: Polyethylene Glycol 3350 Powder 17 GM Packet PO SCH ×2 (08:06)
[2018-04-20] MEDS: Lidocaine 5% Oint 35.44 GM Tube TOP SCH ×2 (08:09→20:42)
[2018-04-20] MEDS: Menthol/Methyl Salicylate 85 GM Tube TOP SCH ×2 (08:10→20:52)
[2018-04-20] MEDS ORDERED: Warfarin 2.5 MG Tab PO ONE (14:00)
[2018-04-20] MEDS: Simvastatin 40 MG Tab PO SCH (20:44)
[2018-04-20] MEDS: ClonazePAM 0.5 MG Tab PO SCH (20:44)
[2018-04-20] MEDS: Gabapentin 100 MG Cap PO SCH (20:44)
[2018-04-20] MEDS: MELATONIN 5 MG PO SCH (20:45)
[2018-04-20] MEDS: QUEtiapine 100 MG Tab PO SCH (20:48)
[2018-04-21] MEDS: Ibuprofen 200 MG Tab PO PRN (01:01)
[2018-04-21] MEDS: Acetaminophen 325 MG Tab PO PRN ×2 (02:31→10:40)
[2018-04-21] MEDS: Pantoprazole 40 MG Tab.CR PO SCH (05:05)
[2018-04-21] MEDS: Levothyroxine 50 MCG Tab PO SCH (05:05)
[2018-04-21] MEDS: Cyclobenzaprine 10 MG Tab PO PRN (05:15)
[2018-04-21] MEDS: Acetaminophen 325 MG Tab PO SCH ×3 (08:04→20:42)
[2018-04-21] MEDS: Digoxin 125 MCG Tab PO SCH (08:05)
[2018-04-21] MEDS: Metoprolol Succinate 25 MG Tab.ER PO SCH ×2 (08:06→20:52)
[2018-04-21] MEDS: Aspirin 81 MG Tab.Chew PO SCH (08:06)
[2018-04-21] MEDS: Menthol/Methyl Salicylate 85 GM Tube TOP SCH ×2 (08:08→20:58)
[2018-04-21] MEDS: Polyethylene Glycol 3350 Powder 17 GM Packet PO SCH (08:09)
[2018-04-21] MEDS: Docusate Sodium 100 MG Cap PO SCH ×2 (08:09→20:57)
[2018-04-21] MEDS: Lidocaine 5% Oint 35.44 GM Tube TOP SCH ×2 (08:11→21:01)
[2018-04-21] MEDS: Ibuprofen 400 MG Tab PO PRN (09:55)
[2018-04-21] MEDS ORDERED: Warfarin 2.5 MG Tab PO ONE (14:00)
[2018-04-21] MEDS: Simvastatin 40 MG Tab PO SCH (20:42)
[2018-04-21] MEDS: Gabapentin 100 MG Cap PO SCH (20:43)
[2018-04-21] MEDS: ClonazePAM 0.5 MG Tab PO SCH (20:43)
[2018-04-21] MEDS: QUEtiapine 100 MG Tab PO SCH (20:45)
[2018-04-21] MEDS: MELATONIN 5 MG PO SCH (21:01)
[2018-04-22] MEDS: Ibuprofen 400 MG Tab PO PRN (00:06)
[2018-04-22] MEDS: Levothyroxine 50 MCG Tab PO SCH (05:41)
[2018-04-22] MEDS: Pantoprazole 40 MG Tab.CR PO SCH (05:41)
--- NOTE | 2018-04-22 08:41 | PCM.PN ---
- General Info Date of Service: 04/22/18 Admission Dx/Problem (Free Text): Admission Diagnosis/Problem Admission Diagnosis/Problem Back pain Subjective Update: Patient had episodes of hallucinations which he describes that he is being put inside the freezer. he is being tapered off benzodiapezines and his oxycodone was discontinued. no new complaints. Functional Status: Reports: Pain Controlled - Review of Systems General: Reports: No Symptoms HEENT: Reports: No Symptoms Pulmonary: Reports: No Symptoms Cardiovascular: Reports: No Symptoms Gastrointestinal: Reports: No Symptoms Genitourinary: Reports: No Symptoms Musculoskeletal: Reports: No Symptoms Skin: Reports: No Symptoms Neurological: Reports: No Symptoms Psychiatric: Reports: No Symptoms - Patient Data Vitals - Most Recent: Last Vital Signs Temp 97.9 F 04/22/18 07:47 Pulse 73 04/22/18 07:47 Resp 20 04/22/18 07:47 BP 141/57 H 04/22/18 07:47 Pulse Ox 97 04/22/18 07:47 Weight - Most Recent: 169 lb I&O - Last 24 Hours: Intake & Output 04/21/18 04/22/18 04/22/18 22:59 06:59 14:59 Intake Total 390 100 Balance 390 100 Lab Results Last 24 Hours: Laboratory Results - last 24 hr 04/22/18 Range/Units 06:12 PT 31.2 H (9.0-12.0) SEC INR 3.2 H (0.9-1.2) Med Orders - Current: Current Medications Acetaminophen (Tylenol) 650 mg PO Q4H PRN PRN Reason: Pain Last Admin: 04/21/18 10:40 Dose: 650 mg Acetaminophen (Tylenol) 650 mg PO TID [facility] Last Admin: 04/21/18 20:42 Dose: 650 mg Al Hydroxide/Mg Hydroxide (Mag-Al Plus) 30 ml PO BID PRN PRN Reason: Gas Last Admin: 04/14/18 13:14 Dose: 30 ml Aspirin (Aspirin) 81 mg PO DAILY [facility] Last Admin: 04/21/18 08:06 Dose: 81 mg Bisacodyl (Dulcolax) 10 mg RECTAL DAILY PRN PRN Reason: Constipation Clonazepam (Klonopin) 0.5 mg PO BEDTIME [facility] Last Admin: 04/21/18 20:43 Dose: 0.5 mg Cyclobenzaprine HCl (Flexeril) 2.5 mg PO TID PRN PRN Reason: Spasms Last Admin: 04/21/18 05:15 Dose: 2.5 mg Digoxin (Lanoxin) 125 mcg PO DAILY [facility] Last Admin: 04/21/18 08:05 Dose: 125 mcg Docusate Sodium (Colace) 200 mg PO BID [facility] Last Admin: 04/21/18 20:57 Dose: Not Given Docusate Sodium (Colace) 100 mg PO BID PRN PRN Reason: Constipation Gabapentin (Neurontin) 100 mg PO BEDTIME [facility] Last Admin: 04/21/18 20:43 Dose: 100 mg Ibuprofen (Motrin) 400 mg PO Q8H PRN PRN Reason: Pain (moderate 4-6) Last Admin: 04/22/18 00:06 Dose: 400 mg Levothyroxine Sodium (Synthroid) 50 mcg PO ACBREAKFAST [facility] Last Admin: 04/22/18 05:41 Dose: 50 mcg Lidocaine HCl (Lidocaine 5%) 0 gm TOP BID [facility] Last Admin: 04/21/18 21:01 Dose: 1 applic Magnesium Hydroxide (Milk Of Magnesia) 30 ml PO DAILY PRN PRN Reason: Constipation Methyl Salicylate (Icy Hot Cream) 0 gm TOP BID [facility] Last Admin: 04/21/18 20:58 Dose: 1 applic Metoprolol Succinate (Toprol Xl) 75 mg PO BID [facility] Last Admin: 04/21/18 20:52 Dose: 75 mg Melatonin 5mgOwn (Med) 1 each PO BEDTIME [facility] Last Admin: 04/21/18 21:01 Dose: 1 each Pantoprazole Sodium (Protonix) 40 mg PO ACBREAKFAST [facility] Last Admin: 04/22/18 05:41 Dose: 40 mg Polyethylene Glycol (Miralax) 17 gm PO DAILY [facility] Last Admin: 04/21/18 08:09 Dose: Not Given Quetiapine Fumarate (Seroquel) 50 mg PO BEDTIME [facility] Last Admin: 04/21/18 20:45 Dose: 50 mg Senna/Docusate Sodium (Senna Plus) 2 tab PO BEDTIME [facility] Last Admin: 04/21/18 20:57 Dose: Not Given Simethicone (Simethicone) 80 mg PO BID PRN PRN Reason: Abdominal Pain Simvastatin (Zocor) 40 mg PO BEDTIME [facility] Last Admin: 04/21/18 20:42 Dose: 40 mg Warfarin Sodium (Pharmacy To Dose - Warfarin) 1 dose .XX ASDIRECTED [facility] Discontinued Medications Amoxicillin/Clavulanate Potassium (Augmentin 875 Mg/125 Mg) 1 tab PO Q12HR [facility] Last Admin: 04/09/18 11:07 Dose: 1 tab Capsaicin (Zostrix 0.025% Crm) 0 gm TOP QID [facility] Last Admin: 04/11/18 10:37 Dose: Not Given Clonazepam (Klonopin) 0.5 mg PO ONETIME ONE Stop: 04/18/18 13:28 Last Admin: 04/18/18 14:04 Dose: 0.5 mg Cyclobenzaprine HCl (Flexeril) 5 mg PO TID PRN PRN Reason: Spasms Last Admin: 04/14/18 22:03 Dose: 5 mg Haloperidol Lactate (Haldol) 2 mg IM ONETIME STA Stop: 04/14/18 01:57 Last Admin: 04/14/18 02:11 Dose: 2 mg Ibuprofen (Motrin) 400 mg PO Q8H PRN PRN Reason: Pain (moderate 4-6) Last Admin: 04/06/18 23:25 Dose: 400 mg Ibuprofen (Motrin) 400 mg PO Q8H PRN PRN Reason: Pain (moderate 4-6) Last Admin: 04/21/18 01:01 Dose: 400 mg Lidocaine (Lidoderm 5%) 700 mg TOP Q24H [facility] Last Admin: 04/10/18 21:48 Dose: 700 mg Lidocaine (Lidoderm 5%) 700 mg TOP DAILY [facility] Last Admin: 04/13/18 08:40 Dose: 700 mg Miscellaneous Information (Remove Patch) 1 ea TRDERM Q24H [facility] Last Admin: 04/11/18 08:42 Dose: 1 ea Miscellaneous Information (Remove Patch) 1 ea TRDERM BEDTIME [facility] Last Admin: 04/12/18 21:45 Dose: Not Given Melatonin 5mg (Own Med) 1 each PO BEDTIME PRN PRN Reason: Sleep Last Admin: 04/13/18 21:03 Dose: 1 each No Warfarin (Today ) 0 each PO ONETIME ONE Stop: 04/10/18 14:01 Last Admin: 04/10/18 14:22 Dose: Not Given No Warfarin (Today ) 0 each PO ONETIME ONE Stop: 04/11/18 14:01 Last Admin: 04/11/18 13:28 Dose: Not Given Oxycodone HCl (Oxycodone) 5 mg PO Q4HR PRN PRN Reason: Pain Last Admin: 04/16/18 02:17 Dose: 5 mg Polyethylene Glycol (Miralax) 17 gm PO DAILY [facility] Last Admin: 04/20/18 08:06 Dose: 17 gm Quetiapine Fumarate (Seroquel) 50 mg PO BEDTIME [facility] Last Admin: 04/18/18 20:30 Dose: 50 mg Warfarin Sodium (Coumadin) 3 mg PO DAILY@1400 [facility] Last Admin: 04/09/18 13:55 Dose: 3 mg Warfarin Sodium (Coumadin) 3 mg PO ONETIME ONE Stop: 04/12/18 14:01 Last Admin: 04/12/18 14:02 Dose: 3 mg Warfarin Sodium (Coumadin) 3 mg PO ONETIME ONE Stop: 04/13/18 14:01 Last Admin: 04/13/18 14:59 Dose: 3 mg Warfarin Sodium (Coumadin) 3 mg PO ONETIME ONE Stop: 04/16/18 14:01 Last Admin: 04/16/18 13:41 Dose: 3 mg Warfarin Sodium (Coumadin) 3 mg PO ONETIME ONE Stop: 04/17/18 14:01 Last Admin: 04/17/18 14:29 Dose: 3 mg Warfarin Sodium (Coumadin) 3 mg PO ONETIME ONE Stop: 04/18/18 14:01 Last Admin: 04/18/18 14:04 Dose: 3 mg Warfarin Sodium (Coumadin) 3 mg PO ONETIME ONE Stop: 04/19/18 14:01 Last Admin: 04/19/18 13:42 Dose: 3 mg Warfarin Sodium (Coumadin) 2.5 mg PO ONETIME ONE Stop: 04/20/18 14:01 Last Admin: 04/20/18 14:21 Dose: 2.5 mg Warfarin Sodium (Coumadin) 2.5 mg PO ONETIME ONE Stop: 04/21/18 14:01 Last Admin: 04/21/18 13:27 Dose: 2.5 mg - Exam General: Alert, Oriented HEENT: Pupils Equal, Pupils Reactive, EOMI, Mucous Membr. Moist/[place] Neck: Supple Lungs: Clear to Auscultation, Normal Respiratory Effort Cardiovascular: Regular Rate, Regular Rhythm GI/Abdominal Exam: Normal Bowel Sounds, Soft, Non-Tender, No Organomegaly, No Distention, No Abnormal Bruit, No Mass, Pelvis Stable (Male) Exam: No Hernia, Normal Inspection, Normal Prostate, Circumcised Back Exam: Normal Inspection, Full Range of Motion Extremities: Normal Inspection, Normal Range of Motion, Non-Tender, No Pedal Edema, Normal Capillary Refill Skin: Warm, Dry, Intact Wound/Incisions: Healing Well Neurological: No New Focal Deficit Psy/Mental Status: Alert, Normal Affect, Normal Mood - Problem List Review Problem List Initiated/Reviewed/Updated: Yes - Plan Plan:: 77-year-old male with past medical history of atrial fibrillation, lumbar stenosis status post laminectomy admitted as an outpatient. episodes of hallucinations -improved since discontinuation of oxycodone -contiue to hold off oxycodone -continue to monitor closely #Back pain; lumbar stenosis status post recent laminectomy Continue PT/OT #Atrial fibrillation Currently rate controlled, continue metoprolol plus digoxin regimen. Anticoagulation: Continue Coumadin #Supra therapeutic pharmacy dosing Coumadin INR daily #DVT prophylaxis On Coumadin
[2018-04-22] MEDS: Digoxin 125 MCG Tab PO SCH (08:49)
[2018-04-22] MEDS: Metoprolol Succinate 25 MG Tab.ER PO SCH ×2 (08:49→21:00)
[2018-04-22] MEDS: Acetaminophen 325 MG Tab PO SCH ×3 (08:50→21:00)
[2018-04-22] MEDS: Polyethylene Glycol 3350 Powder 17 GM Packet PO SCH (08:51)
[2018-04-22] MEDS: Aspirin 81 MG Tab.Chew PO SCH (08:51)
[2018-04-22] MEDS: Docusate Sodium 100 MG Cap PO SCH ×2 (08:51→20:58)
[2018-04-22] MEDS: Menthol/Methyl Salicylate 85 GM Tube TOP SCH ×2 (08:52→20:58)
[2018-04-22] MEDS: Lidocaine 5% Oint 35.44 GM Tube TOP SCH ×2 (08:52→20:58)
[2018-04-22] MEDS ORDERED: Polyethylene Glycol 3350 Powder 17 GM Packet PO PRN (09:18)
[2018-04-22] MEDS: MELATONIN 5 MG PO SCH (20:58)
[2018-04-22] MEDS: Gabapentin 100 MG Cap PO SCH (20:59)
[2018-04-22] MEDS: Simvastatin 40 MG Tab PO SCH (21:01)
[2018-04-22] MEDS: ClonazePAM 0.5 MG Tab PO SCH (21:01)
[2018-04-22] MEDS: QUEtiapine 100 MG Tab PO SCH (21:01)
[2018-04-23] MEDS: Acetaminophen 325 MG Tab PO PRN ×2 (01:43→17:28)
[2018-04-23] MEDS: Ibuprofen 400 MG Tab PO PRN ×2 (04:57→15:41)
[2018-04-23] MEDS: Pantoprazole 40 MG Tab.CR PO SCH (06:06)
[2018-04-23] MEDS: Levothyroxine 50 MCG Tab PO SCH (06:06)
[2018-04-23] MEDS: Aspirin 81 MG Tab.Chew PO SCH (08:35)
[2018-04-23] MEDS: Acetaminophen 325 MG Tab PO SCH ×3 (08:35→21:41)
[2018-04-23] MEDS: Docusate Sodium 100 MG Cap PO SCH ×2 (08:35→21:46)
[2018-04-23] MEDS: Digoxin 125 MCG Tab PO SCH (08:36)
[2018-04-23] MEDS: Metoprolol Succinate 25 MG Tab.ER PO SCH ×2 (08:38→21:40)
[2018-04-23] MEDS: Menthol/Methyl Salicylate 85 GM Tube TOP SCH ×2 (08:41→21:47)
[2018-04-23] MEDS: Lidocaine 5% Oint 35.44 GM Tube TOP SCH ×2 (08:43→21:47)
[2018-04-23] MEDS: ClonazePAM 0.5 MG Tab PO SCH (21:35)
[2018-04-23] MEDS: Gabapentin 100 MG Cap PO SCH (21:35)
[2018-04-23] MEDS: Simvastatin 40 MG Tab PO SCH (21:35)
[2018-04-23] MEDS: QUEtiapine 100 MG Tab PO SCH (21:37)
[2018-04-23] MEDS: MELATONIN 5 MG PO SCH (21:46)
[2018-04-24] MEDS: Ibuprofen 400 MG Tab PO PRN ×2 (00:17→18:07)
[2018-04-24] MEDS: Pantoprazole 40 MG Tab.CR PO SCH (05:25)
[2018-04-24] MEDS: Levothyroxine 50 MCG Tab PO SCH (05:25)
[2018-04-24] MEDS: Acetaminophen 325 MG Tab PO PRN ×2 (05:39→12:42)
[2018-04-24] MEDS: Metoprolol Succinate 25 MG Tab.ER PO SCH ×2 (08:36→20:49)
[2018-04-24] MEDS: Docusate Sodium 100 MG Cap PO SCH ×2 (08:37→21:00)
[2018-04-24] MEDS: Acetaminophen 325 MG Tab PO SCH ×3 (08:37→20:54)
[2018-04-24] MEDS: Digoxin 125 MCG Tab PO SCH (08:39)
[2018-04-24] MEDS: Aspirin 81 MG Tab.Chew PO SCH (08:39)
[2018-04-24] MEDS: Lidocaine 5% Oint 35.44 GM Tube TOP SCH ×2 (09:15→21:02)
[2018-04-24] MEDS: Menthol/Methyl Salicylate 85 GM Tube TOP SCH ×2 (09:15→21:02)
[2018-04-24] MEDS ORDERED: Warfarin 2.5 MG Tab PO ONE (14:00)
[2018-04-24] MEDS: Simvastatin 40 MG Tab PO SCH (20:44)
[2018-04-24] MEDS: ClonazePAM 0.5 MG Tab PO SCH (20:44)
[2018-04-24] MEDS: Gabapentin 100 MG Cap PO SCH (20:44)
[2018-04-24] MEDS: QUEtiapine 100 MG Tab PO SCH (20:51)
[2018-04-24] MEDS: MELATONIN 5 MG PO SCH (20:57)
[2018-04-25] MEDS: Ibuprofen 400 MG Tab PO PRN (02:35)
[2018-04-25] MEDS: Pantoprazole 40 MG Tab.CR PO SCH (05:23)
[2018-04-25] MEDS: Levothyroxine 50 MCG Tab PO SCH (05:23)
[2018-04-25] MEDS: Metoprolol Succinate 25 MG Tab.ER PO SCH ×2 (09:05→20:23)
[2018-04-25] MEDS: Digoxin 125 MCG Tab PO SCH (09:05)
[2018-04-25] MEDS: Acetaminophen 325 MG Tab PO SCH ×3 (09:05→20:21)
[2018-04-25] MEDS: Aspirin 81 MG Tab.Chew PO SCH (09:05)
[2018-04-25] MEDS: Lidocaine 5% Oint 35.44 GM Tube TOP SCH ×2 (09:06→20:24)
[2018-04-25] MEDS: Docusate Sodium 100 MG Cap PO SCH ×2 (09:06→20:20)
[2018-04-25] MEDS: Menthol/Methyl Salicylate 85 GM Tube TOP SCH ×2 (09:06→20:12)
[2018-04-25] MEDS ORDERED: Warfarin 2.5 MG Tab PO ONE (14:00)
[2018-04-25] MEDS: MELATONIN 5 MG PO SCH (20:19)
[2018-04-25] MEDS: ClonazePAM 0.5 MG Tab PO SCH (20:19)
[2018-04-25] MEDS: Gabapentin 100 MG Cap PO SCH (20:20)
[2018-04-25] MEDS: Simvastatin 40 MG Tab PO SCH (20:20)
[2018-04-25] MEDS: QUEtiapine 100 MG Tab PO SCH (20:23)
[2018-04-26] MEDS: Levothyroxine 50 MCG Tab PO SCH (05:44)
[2018-04-26] MEDS: Pantoprazole 40 MG Tab.CR PO SCH (05:45)
[2018-04-26] MEDS: Digoxin 125 MCG Tab PO SCH (08:26)
[2018-04-26] MEDS: Aspirin 81 MG Tab.Chew PO SCH (08:26)
[2018-04-26] MEDS: Acetaminophen 325 MG Tab PO SCH ×3 (08:27→21:37)
[2018-04-26] MEDS: Metoprolol Succinate 25 MG Tab.ER PO SCH ×2 (08:28→21:36)
[2018-04-26] MEDS: Menthol/Methyl Salicylate 85 GM Tube TOP SCH ×2 (08:31→21:44)
[2018-04-26] MEDS: Lidocaine 5% Oint 35.44 GM Tube TOP SCH ×2 (08:31→21:44)
[2018-04-26] MEDS: Docusate Sodium 100 MG Cap PO SCH ×2 (09:00→21:35)
[2018-04-26] MEDS: Ibuprofen 400 MG Tab PO PRN (16:44)
[2018-04-26] MEDS: Gabapentin 100 MG Cap PO SCH (21:35)
[2018-04-26] MEDS: Simvastatin 40 MG Tab PO SCH (21:35)
[2018-04-26] MEDS: ClonazePAM 0.5 MG Tab PO SCH (21:35)
[2018-04-26] MEDS: QUEtiapine 100 MG Tab PO SCH (21:37)
[2018-04-26] MEDS: MELATONIN 5 MG PO SCH (21:44)
[2018-04-27] MEDS: Ibuprofen 400 MG Tab PO PRN ×3 (01:10→19:57)
[2018-04-27] MEDS: Cyclobenzaprine 10 MG Tab PO PRN (03:23)
[2018-04-27] MEDS: Acetaminophen 325 MG Tab PO PRN ×2 (03:24→16:55)
[2018-04-27] MEDS: Levothyroxine 50 MCG Tab PO SCH (05:31)
[2018-04-27] MEDS: Pantoprazole 40 MG Tab.CR PO SCH (05:32)
[2018-04-27] MEDS: Docusate Sodium 100 MG Cap PO SCH ×2 (08:02→22:00)
[2018-04-27] MEDS: Aspirin 81 MG Tab.Chew PO SCH (08:03)
[2018-04-27] MEDS: Digoxin 125 MCG Tab PO SCH (08:03)
[2018-04-27] MEDS: Metoprolol Succinate 25 MG Tab.ER PO SCH ×2 (08:05→22:07)
[2018-04-27] MEDS: Acetaminophen 325 MG Tab PO SCH ×3 (08:06→22:03)
[2018-04-27] MEDS: Lidocaine 5% Oint 35.44 GM Tube TOP SCH ×2 (08:08→22:09)
[2018-04-27] MEDS: Menthol/Methyl Salicylate 85 GM Tube TOP SCH ×2 (08:09→22:09)
[2018-04-27] MEDS: amLODIPine 5 MG Tab PO SCH (10:57)
[2018-04-27] MEDS: Gabapentin 100 MG Cap PO SCH ×2 (10:57→22:03)
[2018-04-27] MEDS: Phenazopyridine 95 MG Tab PO PRN ×2 (17:45→21:59)
[2018-04-27] MEDS: QUEtiapine 100 MG Tab PO SCH (22:01)
[2018-04-27] MEDS: Simvastatin 40 MG Tab PO SCH (22:02)
[2018-04-27] MEDS: ClonazePAM 0.5 MG Tab PO SCH (22:03)
[2018-04-27] MEDS: MELATONIN 5 MG PO SCH (22:09)
[2018-04-28] MEDS: Levothyroxine 50 MCG Tab PO SCH (05:30)
[2018-04-28] MEDS: Pantoprazole 40 MG Tab.CR PO SCH (05:30)
[2018-04-28] MEDS: Docusate Sodium 100 MG Cap PO SCH ×2 (08:22→21:51)
[2018-04-28] MEDS: amLODIPine 5 MG Tab PO SCH (08:23)
[2018-04-28] MEDS: Digoxin 125 MCG Tab PO SCH (08:23)
[2018-04-28] MEDS: Acetaminophen 325 MG Tab PO SCH ×3 (08:23→21:53)
[2018-04-28] MEDS: Aspirin 81 MG Tab.Chew PO SCH (08:23)
[2018-04-28] MEDS: Metoprolol Succinate 25 MG Tab.ER PO SCH ×2 (08:23→22:12)
[2018-04-28] MEDS: Gabapentin 100 MG Cap PO SCH ×2 (08:23→22:10)
[2018-04-28] MEDS: Phenazopyridine 95 MG Tab PO PRN ×2 (08:50→16:34)
[2018-04-28] MEDS: Ibuprofen 400 MG Tab PO PRN ×2 (12:52→21:53)
[2018-04-28] MEDS ORDERED: Warfarin 2.5 MG Tab PO ONE (14:00)
[2018-04-28] MEDS: Lidocaine 5% Oint 35.44 GM Tube TOP SCH ×2 (14:34→22:11)
[2018-04-28] MEDS: Menthol/Methyl Salicylate 85 GM Tube TOP SCH ×2 (14:34→22:11)
[2018-04-28] MEDS: Cyclobenzaprine 10 MG Tab PO PRN (16:31)
[2018-04-28] MEDS: Acetaminophen 325 MG Tab PO PRN (20:02)
[2018-04-28] MEDS: ClonazePAM 0.5 MG Tab PO SCH (21:51)
[2018-04-28] MEDS: QUEtiapine 100 MG Tab PO SCH (21:52)
[2018-04-28] MEDS: Simvastatin 40 MG Tab PO SCH (21:52)
[2018-04-28] MEDS: MELATONIN 5 MG PO SCH (22:10)
[2018-04-29] MEDS: Acetaminophen 325 MG Tab PO PRN ×2 (05:36→09:07)
[2018-04-29] MEDS: Levothyroxine 50 MCG Tab PO SCH (05:37)
[2018-04-29] MEDS: Pantoprazole 40 MG Tab.CR PO SCH (05:37)
[2018-04-29 06:25] LABS: CHLORIDE,CL 111 mmol/L (101-111); SODIUM,NA 142 mmol/L (135-145)
[2018-04-29] MEDS: Acetaminophen 325 MG Tab PO SCH (09:00)
[2018-04-29] MEDS: Digoxin 125 MCG Tab PO SCH (09:06)
[2018-04-29] MEDS: amLODIPine 5 MG Tab PO SCH (09:07)
[2018-04-29] MEDS: Docusate Sodium 100 MG Cap PO SCH (09:07)
[2018-04-29] MEDS: Cyclobenzaprine 10 MG Tab PO PRN (09:08)
[2018-04-29] MEDS: Aspirin 81 MG Tab.Chew PO SCH (09:08)
[2018-04-29] MEDS: Gabapentin 100 MG Cap PO SCH (09:08)
[2018-04-29] MEDS ORDERED: Potassium Chloride 10 MEQ Tab.ER PO ONE (09:56)
--- NOTE | 2018-04-29 10:25 | PCM.DCSUM1 ---
Discharge Summary - Hospital Course Free Text/Narrative:: 77-year-old male with past medical history of atrial fibrillation, lumbar stenosis status post laminectomy admitted for pt/ot. episodes of hallucinations -improved since discontinuation of oxycodone - pain control with lidoderm, tylenol #Back pain; lumbar stenosis status post recent laminectomy Continue PT/OT, home care #Atrial fibrillation Currently rate controlled, continue metoprolol plus digoxin regimen. Anticoagulation: Continue Coumadin #htn cont metoprolol added norvasc #urinary retention valentino was placed follow up with urology Diagnosis: Stroke: No - Discharge Data Discharge Date: 04/29/18 Discharge Disposition: Home, W Home Health Agency Condition: Good - Patient Summary/Data Consults: Consultations 04/05/18 20:24 OT Evaluation and Treatment [CONS] Routine PT Evaluation and Treatment [CONS] Routine - Patient Instructions Diet: Heart Healthy Diet Activity: As Tolerated - Discharge Plan Prescriptions/Med Rec: amLODIPine Besylate [Norvasc] 5 mg PO DAILY #30 tablet Cyclobenzaprine [Flexeril] 2.5 mg PO TID PRN #90 tablet PRN Reason: Spasms Home Medications: Home Meds Digoxin 125 mcg PO DAILY 03/20/18 [History] Simvastatin [Zocor] 40 mg PO BEDTIME 03/20/18 [History] Warfarin [Coumadin] 3 mg PO DAILY 03/20/18 [History] Acetaminophen [Tylenol] 650 mg PO Q4H PRN 04/05/18 [History] Aspirin 81 mg PO DAILY 04/05/18 [History] Bisacodyl 10 mg RECTAL DAILY PRN 04/05/18 [History] ClonazePAM [KlonoPIN] 0.5 mg PO BEDTIME 04/05/18 [History] Levothyroxine [Synthroid] 50 mcg PO ACBREAKFAST 04/05/18 [History] Magnesium Hydroxide [Milk of Magnesia] 30 ml PO DAILY PRN 04/05/18 [History] Metoprolol Succinate 75 mg PO BID 04/05/18 [History] Pantoprazole Sodium [Protonix] 40 mg PO ACBREAKFAST 04/05/18 [History] QUEtiapine [SEROquel] 50 mg PO QPM 04/05/18 [History] Sennosides/Docusate Sodium [Senna-Docusate Sodium] 2 tab PO BEDTIME 04/05/18 [ History] Acetaminophen [Tylenol] 650 mg PO TID tablet 04/29/18 [Rx] Cyclobenzaprine [Flexeril] 2.5 mg PO TID PRN #90 tablet 04/29/18 [Rx] amLODIPine Besylate [Norvasc] 5 mg PO DAILY #30 tablet 04/29/18 [Rx] Referrals: Manoj Kinsey MD [Physician] - (in 2-3 weeks for urinary retention) - General Info Date of Service: 04/29/18 Admission Dx/Problem (Free Text: Admission Diagnosis/Problem Admission Diagnosis/Problem Back pain - Review of Systems General: Denies: Fever Pulmonary: Denies: Shortness of Breath Cardiovascular: Denies: Chest Pain, Edema Gastrointestinal: Reports: Other (tolerating valentino). Denies: Abdominal Pain Neurological: Denies: Confusion - Patient Data Vitals - Most Recent: Last Vital Signs Temp 37.1 C 04/29/18 08:00 Pulse 72 04/29/18 09:06 Resp 18 04/29/18 08:00 BP 127/64 04/29/18 09:07 Pulse Ox 95 04/29/18 08:00 Weight - Most Recent: 75.466 kg I&O - Last 24 hours: Intake & Output 04/28/18 04/29/18 04/29/18 22:59 06:59 14:59 Intake Total 340 125 Output Total 600 675 Balance -260 -550 Lab Results - Last 24 hrs: Laboratory Results - last 24 hr 04/29/18 04/29/18 04/29/18 Range/Units 05:30 05:30 05:30 WBC 8.3 (5.0-10.0) 10^3/uL RBC 2.99 L (4.6-6.2) 10^6/uL Hgb 8.8 L D (14.0-18.0) g/dL Hct 28.1 L (40.0-54.0) % MCV 94.0 (80-100) fL MCH 29.4 (27.0-34.0) pg MCHC 31.3 L (33.0-35.0) g/dL Plt Count 193 (150-450) 10^3/uL Neut % (Auto) 64.1 (42.2-75.2) % Lymph % (Auto) 18.6 L (20.5-50.1) % [place] % (Auto) 8.2 H (2-8) % Eos % (Auto) 8.4 H (1.0-3.0) % Baso % (Auto) 0.7 (0.0-1.0) % PT 20.3 H (9.0-12.0) SEC INR 2.1 H (0.9-1.2) Sodium 142 (135-145) mmol/L Potassium 3.3 L (3.6-5.0) mmol/L Chloride 111 (101-111) mmol/L Carbon Dioxide 26.0 (21.0-31.0) mmol/L Anion Gap 8.3 BUN 19 H (7-18) mg/dL Creatinine 0.8 (0.6-1.3) mg/dL Est Cr Clr Drug Dosing 72.12 mL/min Estimated GFR (MDRD) > 60 Glucose 106 H (74-105) mg/dL Calcium 8.4 (8.4-10.2) mg/dl Med Orders - Current: Current Medications Acetaminophen (Tylenol) 650 mg PO Q4H PRN PRN Reason: Pain Last Admin: 04/29/18 05:36 Dose: 650 mg Acetaminophen (Tylenol) 650 mg PO TID [facility] Last Admin: 04/28/18 21:53 Dose: Not Given Al Hydroxide/Mg Hydroxide (Mag-Al Plus) 30 ml PO BID PRN PRN Reason: Gas Last Admin: 04/14/18 13:14 Dose: 30 ml Amlodipine Besylate (Norvasc) 5 mg PO DAILY [facility] Last Admin: 04/29/18 09:07 Dose: 5 mg Aspirin (Aspirin) 81 mg PO DAILY [facility] Last Admin: 04/29/18 09:08 Dose: 81 mg Bisacodyl (Dulcolax) 10 mg RECTAL DAILY PRN PRN Reason: Constipation Clonazepam (Klonopin) 0.5 mg PO BEDTIME [facility] Last Admin: 04/28/18 21:51 Dose: 0.5 mg Cyclobenzaprine HCl (Flexeril) 2.5 mg PO TID PRN PRN Reason: Spasms Last Admin: 04/29/18 09:08 Dose: 2.5 mg Digoxin (Lanoxin) 125 mcg PO DAILY [facility] Last Admin: 04/29/18 09:06 Dose: 125 mcg Docusate Sodium (Colace) 200 mg PO BID [facility] Last Admin: 04/29/18 09:07 Dose: 200 mg Docusate Sodium (Colace) 100 mg PO BID PRN PRN Reason: Constipation Last Admin: 04/26/18 08:26 Dose: 100 mg Gabapentin (Neurontin) 100 mg PO BID [facility] Last Admin: 04/29/18 09:08 Dose: 100 mg Ibuprofen (Motrin) 400 mg PO Q8H PRN PRN Reason: Pain (moderate 4-6) Last Admin: 04/28/18 21:53 Dose: 400 mg Levothyroxine Sodium (Synthroid) 50 mcg PO ACBREAKFAST [facility] Last Admin: 04/29/18 05:37 Dose: 50 mcg Lidocaine HCl (Lidocaine 5%) 0 gm TOP BID [facility] Last Admin: 04/28/18 22:11 Dose: 1 applic Magnesium Hydroxide (Milk Of Magnesia) 30 ml PO DAILY PRN PRN Reason: Constipation Methyl Salicylate (Icy Hot Cream) 0 gm TOP BID [facility] Last Admin: 04/28/18 22:11 Dose: 1 applic Metoprolol Succinate (Toprol Xl) 75 mg PO BID [facility] Last Admin: 04/28/18 22:12 Dose: 75 mg Melatonin 5mgOwn (Med) 1 each PO BEDTIME [facility] Last Admin: 04/28/18 22:10 Dose: 1 each Pantoprazole Sodium (Protonix) 40 mg PO ACBREAKFAST [facility] Last Admin: 04/29/18 05:37 Dose: 40 mg Phenazopyridine HCl (Urinary Pain Relief) 95 mg PO TID PRN PRN Reason: bladder spasms Last Admin: 04/28/18 16:34 Dose: 95 mg Polyethylene Glycol (Miralax) 17 gm PO DAILY PRN PRN Reason: Constipation Quetiapine Fumarate (Seroquel) 50 mg PO BEDTIME [facility] Last Admin: 04/28/18 21:52 Dose: 50 mg Senna/Docusate Sodium (Senna Plus) 2 tab PO BEDTIME PRN PRN Reason: Constipation Simethicone (Simethicone) 80 mg PO BID PRN PRN Reason: Abdominal Pain Simvastatin (Zocor) 40 mg PO BEDTIME [facility] Last Admin: 04/28/18 21:52 Dose: 40 mg Warfarin Sodium (Pharmacy To Dose - Warfarin) 1 dose .XX ASDIRECTED [facility] Warfarin Sodium (Coumadin) 3 mg PO DAILY@1400 [facility] Stop: 05/01/18 14:01 Discontinued Medications Amoxicillin/Clavulanate Potassium (Augmentin 875 Mg/125 Mg) 1 tab PO Q12HR [facility] Last Admin: 04/09/18 11:07 Dose: 1 tab Capsaicin (Zostrix 0.025% Crm) 0 gm TOP QID [facility] Last Admin: 04/11/18 10:37 Dose: Not Given Clonazepam (Klonopin) 0.5 mg PO ONETIME ONE Stop: 04/18/18 13:28 Last Admin: 04/18/18 14:04 Dose: 0.5 mg Cyclobenzaprine HCl (Flexeril) 5 mg PO TID PRN PRN Reason: Spasms Last Admin: 04/14/18 22:03 Dose: 5 mg Gabapentin (Neurontin) 100 mg PO BEDTIME [facility] Last Admin: 04/26/18 21:35 Dose: 100 mg Haloperidol Lactate (Haldol) 2 mg IM ONETIME STA Stop: 04/14/18 01:57 Last Admin: 04/14/18 02:11 Dose: 2 mg Ibuprofen (Motrin) 400 mg PO Q8H PRN PRN Reason: Pain (moderate 4-6) Last Admin: 04/06/18 23:25 Dose: 400 mg Ibuprofen (Motrin) 400 mg PO Q8H PRN PRN Reason: Pain (moderate 4-6) Last Admin: 04/21/18 01:01 Dose: 400 mg Lidocaine (Lidoderm 5%) 700 mg TOP Q24H [facility] Last Admin: 04/10/18 21:48 Dose: 700 mg Lidocaine (Lidoderm 5%) 700 mg TOP DAILY [facility] Last Admin: 04/13/18 08:40 Dose: 700 mg Miscellaneous Information (Remove Patch) 1 ea TRDERM Q24H [facility] Last Admin: 04/11/18 08:42 Dose: 1 ea Miscellaneous Information (Remove Patch) 1 ea TRDERM BEDTIME [facility] Last Admin: 04/12/18 21:45 Dose: Not Given Melatonin 5mg (Own Med) 1 each PO BEDTIME PRN PRN Reason: Sleep Last Admin: 04/13/18 21:03 Dose: 1 each No Warfarin (Today ) 0 each PO ONETIME ONE Stop: 04/10/18 14:01 Last Admin: 04/10/18 14:22 Dose: Not Given No Warfarin (Today ) 0 each PO ONETIME ONE Stop: 04/11/18 14:01 Last Admin: 04/11/18 13:28 Dose: Not Given Oxycodone HCl (Oxycodone) 5 mg PO Q4HR PRN PRN Reason: Pain Last Admin: 04/16/18 02:17 Dose: 5 mg Polyethylene Glycol (Miralax) 17 gm PO DAILY [facility] Last Admin: 04/20/18 08:06 Dose: 17 gm Polyethylene Glycol (Miralax) 17 gm PO DAILY [facility] Last Admin: 04/22/18 08:51 Dose: Not Given Potassium Chloride (Klor-Con 10) 40 meq PO ONETIME ONE Stop: 04/29/18 09:57 Quetiapine Fumarate (Seroquel) 50 mg PO BEDTIME [facility] Last Admin: 04/18/18 20:30 Dose: 50 mg Senna/Docusate Sodium (Senna Plus) 2 tab PO BEDTIME [facility] Last Admin: 04/21/18 20:57 Dose: Not Given Warfarin Sodium (Coumadin) 3 mg PO DAILY@1400 [facility] Last Admin: 04/09/18 13:55 Dose: 3 mg Warfarin Sodium (Coumadin) 3 mg PO ONETIME ONE Stop: 04/12/18 14:01 Last Admin: 04/12/18 14:02 Dose: 3 mg Warfarin Sodium (Coumadin) 3 mg PO ONETIME ONE Stop: 04/13/18 14:01 Last Admin: 04/13/18 14:59 Dose: 3 mg Warfarin Sodium (Coumadin) 3 mg PO ONETIME ONE Stop: 04/16/18 14:01 Last Admin: 04/16/18 13:41 Dose: 3 mg Warfarin Sodium (Coumadin) 3 mg PO ONETIME ONE Stop: 04/17/18 14:01 Last Admin: 04/17/18 14:29 Dose: 3 mg Warfarin Sodium (Coumadin) 3 mg PO ONETIME ONE Stop: 04/18/18 14:01 Last Admin: 04/18/18 14:04 Dose: 3 mg Warfarin Sodium (Coumadin) 3 mg PO ONETIME ONE Stop: 04/19/18 14:01 Last Admin: 04/19/18 13:42 Dose: 3 mg Warfarin Sodium (Coumadin) 2.5 mg PO ONETIME ONE Stop: 04/20/18 14:01 Last Admin: 04/20/18 14:21 Dose: 2.5 mg Warfarin Sodium (Coumadin) 2.5 mg PO ONETIME ONE Stop: 04/21/18 14:01 Last Admin: 04/21/18 13:27 Dose: 2.5 mg Warfarin Sodium (Coumadin) 1 mg PO ONETIME ONE Stop: 04/22/18 14:01 Last Admin: 04/22/18 13:52 Dose: 1 mg Warfarin Sodium (Coumadin) 0.5 mg PO ONETIME ONE Stop: 04/23/18 14:01 Last Admin: 04/23/18 13:50 Dose: 0.5 mg Warfarin Sodium (Coumadin) 2.5 mg PO ONETIME ONE Stop: 04/24/18 14:01 Last Admin: 04/24/18 14:56 Dose: 2.5 mg Warfarin Sodium (Coumadin) 2.5 mg PO ONETIME ONE Stop: 04/25/18 14:01 Last Admin: 04/25/18 13:49 Dose: 2.5 mg Warfarin Sodium (Coumadin) 3 mg PO ONETIME ONE Stop: 04/26/18 14:01 Last Admin: 04/26/18 13:39 Dose: 3 mg Warfarin Sodium (Coumadin) 3 mg PO ONETIME ONE Stop: 04/27/18 14:01 Last Admin: 04/27/18 13:26 Dose: 3 mg Warfarin Sodium (Coumadin) 2.5 mg PO ONETIME ONE Stop: 04/28/18 14:01 Last Admin: 04/28/18 14:03 Dose: 2.5 mg - Exam General: Reports: Alert, Oriented Neck: Reports: Supple Lungs: Reports: Clear to Auscultation, Normal Respiratory Effort Cardiovascular: Reports: Regular Rate, Regular Rhythm GI/Abdominal Exam: Normal Bowel Sounds, Soft, Non-Tender (Male) Exam: Other (Valentino catheter) Extremities: No Pedal Edema
[2018-04-29] MEDS: Metoprolol Succinate 25 MG Tab.ER PO SCH (10:59)
[2018-04-29] MEDS: Lidocaine 5% Oint 35.44 GM Tube TOP SCH (11:01)
[2018-04-29] MEDS: Menthol/Methyl Salicylate 85 GM Tube TOP SCH (11:33)
== END 2018-04-29 12:30 | disposition home health service (06) | DRG 949 ==
LOC: UNDOADMIN 18:20 → DL.MS 18:20
PROVIDERS: ADMIT Hospitalist; ATTEND Hospitalist
DX: Z48.811 Encounter for surgical aftercare following surgery on the nervous system (principal); R44.3 Hallucinations, unspecified; M54.9 Dorsalgia, unspecified; I48.91 Unspecified atrial fibrillation; M54.2 Cervicalgia; E03.9 Hypothyroidism, unspecified; E78.00 Pure hypercholesterolemia, unspecified; R33.9 Retention of urine, unspecified; I11.0 Hypertensive heart disease with heart failure; I50.9 Heart failure, unspecified; Z79.899 Other long term (current) drug therapy; Z79.01 Long term (current) use of anticoagulants; Z79.82 Long term (current) use of aspirin; Z98.1 Arthrodesis status
CPT/HCPCS: 36415; 51702; 74018; 80048; 80162; 85025; 85610; 97110-GO; 97110-GP; 97116-GP; 97162-GP; 97166-GO; 97530-GO; 97535-GO; A9270-GY; J1630

== ENCOUNTER 2018-05-20 14:18 | Emergency (ER) | payer MEDICARE, OTHER ==
--- NOTE | 2018-05-20 17:05 | EDM.PDOC ---
Scribed by Francisca Weber 05/20/18 1634 for Clint Barrett MD ED HPI GENERAL MEDICAL PROBLEM - General Chief Complaint: Genitourinary Problem Stated Complaint: TROUBLE WITH CATHETER Time Seen by Provider: 05/20/18 16:15 Source of Information: Reports: Patient, RN, RN Notes Reviewed History Limitations: Reports: No Limitations - History of Present Illness INITIAL COMMENTS - FREE TEXT/NARRATIVE: Patient presents to ER with complaint that his Menendez catheter was not draining and he was feeling suprapubic pressure Denies any fever or chills. Onset: Today Duration: Getting Worse Quality: Reports: Ache Severity: Moderate Improves with: Reports: None Worsens with: Reports: None Associated Symptoms: Reports: No Other Symptoms Penis Pain Score (Numeric/FACES): 4 - Related Data Allergies Allergy/AdvReac Type Severity Reaction Status Date / Time No Known Allergies Allergy Verified 05/20/18 14:24 Home Meds: Home Meds Digoxin 125 mcg PO DAILY 03/20/18 [History] Simvastatin [Zocor] 40 mg PO BEDTIME 03/20/18 [History] Warfarin [Coumadin] 3 mg PO DAILY 03/20/18 [History] Acetaminophen [Tylenol] 650 mg PO Q4H PRN 04/05/18 [History] Aspirin 81 mg PO DAILY 04/05/18 [History] Bisacodyl 10 mg RECTAL DAILY PRN 04/05/18 [History] ClonazePAM [KlonoPIN] 0.5 mg PO BEDTIME 04/05/18 [History] Levothyroxine [Synthroid] 50 mcg PO ACBREAKFAST 04/05/18 [History] Magnesium Hydroxide [Milk of Magnesia] 30 ml PO DAILY PRN 04/05/18 [History] Metoprolol Succinate 75 mg PO BID 04/05/18 [History] Pantoprazole Sodium [Protonix] 40 mg PO ACBREAKFAST 04/05/18 [History] QUEtiapine [SEROquel] 50 mg PO QPM 04/05/18 [History] Sennosides/Docusate Sodium [Senna-Docusate Sodium] 2 tab PO BEDTIME 04/05/18 [ History] Acetaminophen [Tylenol] 650 mg PO TID tablet 04/29/18 [Rx] Cyclobenzaprine [Flexeril] 2.5 mg PO TID PRN #90 tablet 04/29/18 [Rx] amLODIPine Besylate [Norvasc] 5 mg PO DAILY #30 tablet 04/29/18 [Rx] Past Medical History Cardiovascular History: Reports: Heart Failure Genitourinary History: Reports: Retention, Urinary, Other (See Below) (prostate problem) - Past Surgical History Neurological Surgical History: Reports: Lumbar Spine Social & Family History - Family History Family Medical History: Noncontributory - Tobacco Use Smoking Status *Q: Unknown Ever Smoked - Caffeine Use Caffeine Use: Reports: Coffee - Recreational Drug Use Recreational Drug Use: No ED ROS GENERAL - Review of Systems Review Of Systems: ROS reveals no pertinent complaints other than HPI. ED EXAM, RENAL/ - Physical Exam Exam: See Below Exam Limited By: No Limitations General Appearance: Alert, WD/WN, Other (frail elderly appearing.) Head: Atraumatic, Normocephalic Respiratory/Chest: No Respiratory Distress GI/Abdominal: Soft (with mild suprapubic tenderness) Neurological: Alert, Oriented, No Motor/Sensory Deficits Course - Vital Signs Last Recorded V/S: Last Vital Signs Temp 36.7 C 05/20/18 14:27 Pulse 86 05/20/18 14:27 Resp 18 05/20/18 14:27 BP 119/64 05/20/18 14:27 Pulse Ox 96 05/20/18 14:27 - Orders/Labs/Meds Orders: Active Orders 24 hr Category Date Time Status Insert Menendez Catheter [Insert Urinary Catheter] [OM.PC] Care 05/20/18 16:30 Ordered Q24H Urinary Catheter Assessment [RC] ASDIRECTED Care 05/20/18 16:31 Active UA W/MICROSCOPIC [URIN] Stat Lab 05/20/18 14:58 Ordered Labs: Laboratory Tests 05/20/18 Range/Units 14:58 Urine Color Yellow (YELLOW) Urine Appearance Cloudy (CLEAR) Urine pH >= 9.0 (5.0-9.0) Ur Specific [place] 1.010 (1.005-1.030) Urine Protein >=300 H (NEGATIVE) Urine Glucose (UA) Negative (NEGATIVE) Urine Ketones Negative (NEGATIVE) Urine Occult Blood Negative (NEGATIVE) Urine Nitrite Negative (NEGATIVE) Urine Bilirubin Small H (NEGATIVE) Urine Urobilinogen 0.2 (0.2-1.0) mg/dL Ur Leukocyte Esterase Small H (NEGATIVE) Urine RBC 0-5 /HPF Urine WBC 0-5 (0-5/HPF) /HPF Ur Epithelial Cells Rare /HPF Triple Phos Crystals Many H /HPF Amorphous Sediment Moderate (0/HPF) /HPF Urine Bacteria Many H (0-FEW/HPF) /HPF Departure - Departure Time of Disposition: 16:32 Disposition: Home, Self-Care 01 Condition: Good Clinical Impression: Obstruction of Menendez catheter Qualifiers: Encounter type: initial encounter Qualified Code(s): T83.091A - Other mechanical complication of indwelling urethral catheter, initial encounter - Discharge Information Instructions: Indwelling Urinary Catheter Care, Adult Forms: ED Department Discharge Additional Instructions: Follow up in clinic with your doctor for a repeat urine test in the next 1 week. Return to ER if any further catheter problems. - My Orders Last 24 Hours: My Active Orders 05/20/18 14:58 UA W/MICROSCOPIC [URIN] Stat 05/20/18 16:30 Insert Menendez Catheter [Insert Urinary Catheter] [OM.PC] Q24H 05/20/18 16:31 Urinary Catheter Assessment [RC] ASDIRECTED - Assessment/Plan Last 24 Hours: My Active Orders 05/20/18 14:58 UA W/MICROSCOPIC [URIN] Stat 05/20/18 16:30 Insert Menendez Catheter [Insert Urinary Catheter] [OM.PC] Q24H 05/20/18 16:31 Urinary Catheter Assessment [RC] ASDIRECTED I have read and agree with the documentation that has been completed regarding this visit. By signing this record, I attest that the documentation was completed in my physical presence and is an accurate record of the encounter.
== END 2018-05-20 16:56 | disposition home or self-care (01) ==
LOC: DL.ED 14:18
DX: T83.098A Other mechanical complication of other urinary catheter, initial encounter (principal); Z79.899 Other long term (current) drug therapy; Z79.01 Long term (current) use of anticoagulants
CPT/HCPCS: 51703; 81001; 99283; 99284

== ENCOUNTER → 2018-11-25 | Day surgery (SDC) | payer MEDICARE, OTHER ==
[~2018-11-25] MED LIST: Dextrose 5%-0.45% NaCl 1,000 ML IV SCH; Midazolam 1 MG/ML 2 ML SDV IV ONE; Midazolam 1 MG/ML 2 ML SDV ONE; fentaNYL 100 MCG/2 ML SDV IV ONE; fentaNYL 100 MCG/2 ML SDV ONE
--- NOTE | 2018-11-25 12:15 | OR ---
DATE: 11/25/2018 PREOPERATIVE DIAGNOSIS: Colon polyps. POSTOPERATIVE DIAGNOSIS: Colon polyps. PROCEDURES: Total colonoscopy with biopsy forceps excision, right colon polyp and snare excision, sigmoid polyp x2. ANESTHESIA: Conscious sedation with IV Versed and fentanyl. SPECIMEN: Polyp x3. OPERATIVE FINDINGS: Two pedunculated polyps, 1 in the proximal and 1 in the distal sigmoid colon, 1 sessile polyp in the right colon, otherwise normal. RECOMMENDATION: Followup colonoscopy, 1 to 2 years. INDICATION FOR PROCEDURE: This 78-year-old male had rectal pain and underwent a flexible sigmoidoscopy last month. However, at that time, no explanation for his rectal pain was noted, but he did have 2 large pedunculated polyps. At that time, the patient was on Coumadin and I could not take the polyps off nor could I clear the rest of the colon. He was set up for now a total colonoscopy. PROCEDURE IN DETAIL: After adequate preparation, a colonoscope was inserted into the rectum, this was easily passed all the way to the cecum. Confirmation of the cecum was made by visualization of the ileocecal valve, palpation in the right lower quadrant, and a light shining through the right lower quadrant. The bowel prep was very good. On withdrawal of the scope, he did have 1 sessile polyp in the right colon. The biopsy forceps was used to biopsy this off the mucosa, and seemed to encompass the whole snare. On withdrawal of the scope, it was normal until we got to the sigmoid. In the upper sigmoid junction with the left colon, there was a pedunculated polyp. A snare was placed around this and amputated at the stalk. This was retrieved for pathological evaluation and on further retrieval of the scope, there was a second large pedunculated polyp in the distal sigmoid, just above the junction of the rectum. This polyp was also taken off with a snare and retrieved for evaluation. Rectal examination is normal. Air was suctioned from the colon and the scope removed. [facility] /[id number]
== END ==
LOC: DL.ENDO 07:42
PROVIDERS: ATTEND Surgery
DX: D12.2 Benign neoplasm of ascending colon (principal); D12.5 Benign neoplasm of sigmoid colon
CPT/HCPCS: 45380; 45385; J2250; J3010; J7042

== ENCOUNTER 2018-11-28 07:21 | Emergency (ER) | payer MEDICARE, OTHER ==
[2018-11-28] MEDS ORDERED: Lactated Ringers 1,000 ML IV ONE ×2 (07:40→08:02)
[2018-11-28 07:53] LABS: ALLEN TEST PERFORMED; BASE EXCESS ARTERIAL -9 mmol/L ((-2)-(+3)); BICARBONATE,ARTERIAL 14.3 mmol/L (22-26); O2 DELIVERY DEVICE ROOM AIR; O2 SATURATION ARTERIAL 99 % (95-100); PCO2 ARTERIAL 24 mmHg (35-45); PO2 ARTERIAL 105 mmHg (70-100)
[2018-11-28 07:54] LABS: O2 FLOW RATE 4
[2018-11-28] MEDS ORDERED: Piperacillin/Tazobactam 3.375 GM in Sodium Chloride 0.9% 100 ML IV ONE (08:08)
[2018-11-28 08:13] LABS: ANION GAP 20.1; CHLORIDE,CL 100 mmol/L (101-111); SODIUM,NA 133 mmol/L (135-145)
[2018-11-28] MEDS ORDERED: Norepinephrine 4 MG in Dextrose 5% in Water 246 ML IV SCH ×2 (08:30)
--- NOTE | 2018-11-28 09:20 | EDM.PDOC ---
ED HPI GENERAL MEDICAL PROBLEM - General Chief Complaint: Neuro Symptoms/Deficits Stated Complaint: STROKE Time Seen by Provider: 11/28/18 07:23 Source of Information: Reports: EMS, Family History Limitations: Reports: Altered Mental Status - History of Present Illness INITIAL COMMENTS - FREE TEXT/NARRATIVE: patient is brought to the emergency department and a stroke code was activated prior to the patient's arrival. Patient with right to the CAT scanner on arrival after a quick evaluation by myself.I am unable to obtain any history from the patient as he is somewhat confused. According to the the patient had a colonoscopy on Sunday and he is not "bend right ever since". He has been confused. This morning he was more confused and was not moving his right side of his body as well. His speech was quite different. He has not been eating or drinking. He really has been just laying around not doing much.He has been vomiting. As well as diarrhea. - Related Data Allergies Allergy/AdvReac Type Severity Reaction Status Date / Time No Known Allergies Allergy Verified 11/22/18 13:10 Home Meds: Home Meds Digoxin 125 mcg PO .QODEVENING 03/20/18 [History] Simvastatin [Zocor] 40 mg PO BEDTIME 03/20/18 [History] Warfarin [Coumadin] 3 mg PO DAILY 03/20/18 [History] ClonazePAM [KlonoPIN] 0.5 mg PO BEDTIME 04/05/18 [History] Levothyroxine [Synthroid] 50 mcg PO BEDTIME 04/05/18 [History] Metoprolol Succinate 50 mg PO DAILY 04/05/18 [History] Cyclobenzaprine [Flexeril] 5 mg PO TID PRN 11/25/18 [History] Gabapentin [Neurontin] 300 mg PO TID 11/25/18 [History] Oxybutynin Chloride [Ditropan Xl] 10 mg PO BEDTIME 11/25/18 [History] Past Medical History HEENT History: Reports: Impaired Vision, Other (See Below) Other HEENT History: HEARING AIDE LEFT EAR. READING GLASSES Cardiovascular History: Reports: Afib, Heart Failure, High Cholesterol, Hypertension Respiratory History: Reports: None Gastrointestinal History: Reports: Chronic Constipation, Colon Polyp, Hemorrhoids Genitourinary History: Reports: BPH, Retention, Urinary, Other (See Below) Other Genitourinary History: Has had indwelling valentino catheter since March 2018 Musculoskeletal History: Reports: Arthritis Neurological History: Reports: None Psychiatric History: Reports: None Endocrine/Metabolic History: Reports: Hypothyroidism Hematologic History: Reports: Blood Transfusion(s) Immunologic History: Reports: None Oncologic (Cancer) History: Reports: None Other Oncologic History: SKIN Dermatologic History: Reports: None - Infectious Disease History Infectious Disease History: Reports: Measles, Mumps - Past Surgical History Head Surgeries/Procedures: Reports: None Other HEENT Surgeries/Procedures: UPPER AND LOWER DENTRUES Cardiovascular Surgical History: Reports: Other (See Below) Respiratory Surgical History: Reports: None GI Surgical History: Reports: Other (See Below) Other GI Surgeries/Procedures: FLEX SIGMOIDOSCOPY Male Surgical History: Reports: Other (See Below) Other Male Surgeries/Procedures: chronic valentino catheter Endocrine Surgical History: Reports: None Neurological Surgical History: Reports: Lumbar Spine Musculoskeletal Surgical History: Reports: Other (See Below) Other Musculoskeletal Surgeries/Procedures:: back surgery in 03/2018 Oncologic Surgical History: Reports: None Dermatological Surgical History: Reports: None Social & Family History - Family History Family Medical History: Noncontributory - Caffeine Use Caffeine Use: Reports: Coffee Other Caffeine Use: COFFEE 1 CUP DAILY ED ROS GENERAL - Review of Systems Review Of Systems: Unable To Obtain ED EXAM, NEURO - Physical Exam Exam: See Below Text/Narrative:: this patient clearly is quite dehydrated. his lips are very dry and cracked. His speech is somewhat garbled and thick and hard to understand. He has minimal movement of his right upper and right lower extremity. He is quite hypotensive upon arrival and fluid resuscitation was initiated. Exam Limited By: Altered Mental Status General Appearance: Thin Eye Exam: Bilateral Eye: EOMI, Normal Inspection, Proptosis Head Exam: Atraumatic, Normocephalic Neck: Normal Inspection, Supple, Non-Tender, Full Range of Motion Respiratory/Chest: No Respiratory Distress, Lungs Clear, Normal Breath Sounds, No Accessory Muscle Use Cardiovascular: Normal Peripheral Pulses, Regular Rate, Rhythm GI/Abdominal: Normal Bowel Sounds, Distended, Tender (throughout the abdomen without guarding or rebound), Other (he does have a suprapubic catheter in place that is not draining and is plugged. ) Neurological: Alert. No: Oriented x 3 (he is unsure of the date or time. He cannot recall recent events. Minimal movement of his right upper and right lower extremity.) Back Exam: Normal Inspection Extremities: No Pedal Edema, Normal Capillary Refill, Other (inimal movement of his right upper and right lower extremity.) Skin Exam: Dry, Intact, No Rash, Cool, Pallor EKG INTERPRETATION EKG Date: 11/28/18 Time: 07:34 Rhythm: A-Fib Rate (Beats/Min): 140 [place]: Normal P-Wave: Absent QRS: Normal ST-T: Normal QT: Normal Course - Vital Signs Last Recorded V/S: Last Vital Signs Temp 37.1 C 11/28/18 09:00 Pulse 143 H 11/28/18 09:00 Resp 22 H 11/28/18 09:00 BP 157/46 H 11/28/18 09:00 Pulse Ox 85 L 11/28/18 09:00 - Orders/Labs/Meds Labs: Laboratory Tests 11/28/18 11/28/18 11/28/18 Range/Units 07:40 07:40 07:40 WBC 20.4 H (5.0-10.0) 10^3/uL RBC 3.79 L (4.6-6.2) 10^6/uL Hgb 11.2 L (14.0-18.0) g/dL Hct 34.0 L (40.0-54.0) % MCV 89.7 D (80-100) fL MCH 29.6 (27.0-34.0) pg MCHC 32.9 L (33.0-35.0) g/dL Plt Count 146 L (150-450) 10^3/uL Neut % (Auto) 90.8 H (42.2-75.2) % Lymph % (Auto) 2.7 L (20.5-50.1) % [place] % (Auto) 6.4 (2-8) % Eos % (Auto) 0.0 L (1.0-3.0) % Baso % (Auto) 0.1 (0.0-1.0) % PT 12.1 H D (9.0-12.0) SEC INR 1.2 (0.9-1.2) ABG pH (7.35-7.45) ABG pCO2 (35-45) mmHg ABG pO2 (70-100) mmHg ABG HCO3 (22-26) mmol/L ABG O2 Saturation (95-100) % ABG Base Excess ((-2)-(+3)) mmol/L Chris Test O2 Delivery Device Oxygen Flow Rate Sodium 133 L (135-145) mmol/L Potassium 3.1 L (3.6-5.0) mmol/L Chloride 100 L (101-111) mmol/L Carbon Dioxide 16.0 L D (21.0-31.0) mmol/L Anion Gap 20.1 BUN 32 H (7-18) mg/dL Creatinine 2.7 H D (0.6-1.3) mg/dL Est Cr Clr Drug Dosing TNP Estimated GFR (MDRD) 23 BUN/Creatinine Ratio 11.85 Glucose 183 H (74-105) mg/dL Lactic Acid (0.5-2.2) mmol/L Calcium 8.0 L (8.4-10.2) mg/dl Magnesium 1.7 L (1.8-2.5) mg/dL Total Bilirubin 1.3 H (0.2-1.0) mg/dL AST 92 H (10-42) IU/L ALT 27 (10-60) IU/L Alkaline Phosphatase 68 (42-121) IU/L Ammonia (11-35) umol/L Creatine Kinase 3050 H (26-174) IU/L Troponin I 0.09 H* (0.00-0.02) ng/ml C-Reactive Protein (0.0-1.3) mg/dL Total Protein 6.3 L (6.7-8.2) g/dl Albumin 3.1 L (3.2-5.5) g/dl Globulin 3.2 Albumin/Globulin Ratio 0.97 Urine Color (YELLOW) Urine Appearance (CLEAR) Urine pH (5.0-9.0) Ur Specific [place] (1.005-1.030) Urine Protein (NEGATIVE) Urine Glucose (UA) (NEGATIVE) Urine Ketones (NEGATIVE) Urine Occult Blood (NEGATIVE) Urine Nitrite (NEGATIVE) Urine Bilirubin (NEGATIVE) Urine Urobilinogen (0.2-1.0) mg/dL Ur Leukocyte Esterase (NEGATIVE) Urine RBC /HPF Urine WBC (0-5/HPF) /HPF Ur Epithelial Cells /HPF Amorphous Sediment (0/HPF) /HPF Urine Bacteria (0-FEW/HPF) /HPF Granular Casts /LPF Fine Granular Casts (0/LPF) /LPF Urine Mucus /LPF Digoxin (0-2.5) ng/ml Ketones Negative 11/28/18 11/28/18 11/28/18 Range/Units 07:40 07:40 07:40 WBC (5.0-10.0) 10^3/uL RBC (4.6-6.2) 10^6/uL Hgb (14.0-18.0) g/dL Hct (40.0-54.0) % MCV (80-100) fL MCH (27.0-34.0) pg MCHC (33.0-35.0) g/dL Plt Count (150-450) 10^3/uL Neut % (Auto) (42.2-75.2) % Lymph % (Auto) (20.5-50.1) % [place] % (Auto) (2-8) % Eos % (Auto) (1.0-3.0) % Baso % (Auto) (0.0-1.0) % PT (9.0-12.0) SEC INR (0.9-1.2) ABG pH (7.35-7.45) ABG pCO2 (35-45) mmHg ABG pO2 (70-100) mmHg ABG HCO3 (22-26) mmol/L ABG O2 Saturation (95-100) % ABG Base Excess ((-2)-(+3)) mmol/L Chris Test O2 Delivery Device Oxygen Flow Rate Sodium (135-145) mmol/L Potassium (3.6-5.0) mmol/L Chloride (101-111) mmol/L Carbon Dioxide (21.0-31.0) mmol/L Anion Gap BUN (7-18) mg/dL Creatinine (0.6-1.3) mg/dL Est Cr Clr Drug Dosing Estimated GFR (MDRD) BUN/Creatinine Ratio Glucose (74-105) mg/dL Lactic Acid 5.2 H (0.5-2.2) mmol/L Calcium (8.4-10.2) mg/dl Magnesium (1.8-2.5) mg/dL Total Bilirubin (0.2-1.0) mg/dL AST (10-42) IU/L ALT (10-60) IU/L Alkaline Phosphatase (42-121) IU/L Ammonia 13 (11-35) umol/L Creatine Kinase (26-174) IU/L Troponin I (0.00-0.02) ng/ml C-Reactive Protein (0.0-1.3) mg/dL Total Protein (6.7-8.2) g/dl Albumin (3.2-5.5) g/dl Globulin Albumin/Globulin Ratio Urine Color (YELLOW) Urine Appearance (CLEAR) Urine pH (5.0-9.0) Ur Specific [place] (1.005-1.030) Urine Protein (NEGATIVE) Urine Glucose (UA) (NEGATIVE) Urine Ketones (NEGATIVE) Urine Occult Blood (NEGATIVE) Urine Nitrite (NEGATIVE) Urine Bilirubin (NEGATIVE) Urine Urobilinogen (0.2-1.0) mg/dL Ur Leukocyte Esterase (NEGATIVE) Urine RBC /HPF Urine WBC (0-5/HPF) /HPF Ur Epithelial Cells /HPF Amorphous Sediment (0/HPF) /HPF Urine Bacteria (0-FEW/HPF) /HPF Granular Casts /LPF Fine Granular Casts (0/LPF) /LPF Urine Mucus /LPF Digoxin 0.5 (0-2.5) ng/ml Ketones 11/28/18 11/28/18 11/28/18 Range/Units 07:40 07:45 10:18 WBC (5.0-10.0) 10^3/uL RBC (4.6-6.2) 10^6/uL Hgb (14.0-18.0) g/dL Hct (40.0-54.0) % MCV (80-100) fL MCH (27.0-34.0) pg MCHC (33.0-35.0) g/dL Plt Count (150-450) 10^3/uL Neut % (Auto) (42.2-75.2) % Lymph % (Auto) (20.5-50.1) % [place] % (Auto) (2-8) % Eos % (Auto) (1.0-3.0) % Baso % (Auto) (0.0-1.0) % PT (9.0-12.0) SEC INR (0.9-1.2) ABG pH 7.39 (7.35-7.45) ABG pCO2 24 L (35-45) mmHg ABG pO2 105 H (70-100) mmHg ABG HCO3 14.3 L (22-26) mmol/L ABG O2 Saturation 99 (95-100) % ABG Base Excess -9 L ((-2)-(+3)) mmol/L Chris Test Performed O2 Delivery Device Room air Oxygen Flow Rate 4 Sodium (135-145) mmol/L Potassium (3.6-5.0) mmol/L Chloride (101-111) mmol/L Carbon Dioxide (21.0-31.0) mmol/L Anion Gap BUN (7-18) mg/dL Creatinine (0.6-1.3) mg/dL Est Cr Clr Drug Dosing Estimated GFR (MDRD) BUN/Creatinine Ratio Glucose (74-105) mg/dL Lactic Acid (0.5-2.2) mmol/L Calcium (8.4-10.2) mg/dl Magnesium (1.8-2.5) mg/dL Total Bilirubin (0.2-1.0) mg/dL AST (10-42) IU/L ALT (10-60) IU/L Alkaline Phosphatase (42-121) IU/L Ammonia (11-35) umol/L Creatine Kinase (26-174) IU/L Troponin I (0.00-0.02) ng/ml C-Reactive Protein > 20.0 H (0.0-1.3) mg/dL Total Protein (6.7-8.2) g/dl Albumin (3.2-5.5) g/dl Globulin Albumin/Globulin Ratio Urine Color Yellow (YELLOW) Urine Appearance Turbid (CLEAR) Urine pH 5.5 (5.0-9.0) Ur Specific [place] 1.020 (1.005-1.030) Urine Protein 100 H (NEGATIVE) Urine Glucose (UA) Negative (NEGATIVE) Urine Ketones Negative (NEGATIVE) Urine Occult Blood Large H (NEGATIVE) Urine Nitrite Negative (NEGATIVE) Urine Bilirubin Negative (NEGATIVE) Urine Urobilinogen 0.2 (0.2-1.0) mg/dL Ur Leukocyte Esterase Small H (NEGATIVE) Urine RBC 40-50 H /HPF Urine WBC 20-30 H (0-5/HPF) /HPF Ur Epithelial Cells Few /HPF Amorphous Sediment Many (0/HPF) /HPF Urine Bacteria Moderate H (0-FEW/HPF) /HPF Granular Casts Moderate /LPF Fine Granular Casts Few H (0/LPF) /LPF Urine Mucus Many H /LPF Digoxin (0-2.5) ng/ml Ketones Meds: Medications Discontinued Medications Generic Name Dose Route Start Last Admin Trade Name Freq PRN Reason Stop Dose Admin Lactated Ringer's 1,000 mls @ 1,000 mls/hr 11/28/18 07:40 11/28/18 08:35 Ringers, Lactated IV 11/28/18 08:39 1,000 mls/hr .BOLUS ONE Administration Lactated Ringer's 1,000 mls @ 1,000 mls/hr 11/28/18 08:02 11/28/18 08:35 Ringers, Lactated IV 11/28/18 09:01 1,000 mls/hr .BOLUS ONE Administration Piperacillin Sod/Tazobactam 100 mls @ 200 mls/hr 11/28/18 08:08 11/28/18 08: 43 Sod 3.375 gm/ Sodium Chloride IV 11/28/18 08:37 200 mls/hr ONETIME ONE Administration Vancomycin HCl 1 gm/ Sodium 250 mls @ 167 mls/hr 11/28/18 08:08 11/28/18 09: 11 Chloride IV 11/28/18 09:37 167 mls/hr ONETIME ONE Administration Norepinephrine Bitartrate 4 mg 250 mls @ 7.5 mls/hr 11/28/18 08:30 11/28/18 10:03 / Dextrose/Water IV 1.6 mcg/min TITRATE YOLI 6 mls/hr Titration Protocol 2 MCG/MIN Iopamidol 75 ml 11/28/18 09:27 11/28/18 10:22 Isovue-300 (61%) IVPUSH 11/28/18 09:28 75 ml ONETIME ONE Administration - Radiology Interpretation Free Text/Narrative:: CT head per stroke protocol no acute CT abnormality. CT abd pelvis per radiology. CT abdomen and pelvis per radiology high-grade obstruction distal left ureter. Acute peritonitis midepigastrium - Re-Assessments/Exams Free Text/Narrative Re-Assessment/Exam: 11/28/18 10:29 2 liter NS bolus started. Stroke code upon arrival. the patient's heart rate did improve and his blood pressure still was quite hypotensive. Eventually we started him on levo fed0.05 mcg/kg/h with good improvement of his blood pressure. He does have a quite distended bladder when I used the ultrasound extemporaneously as we are not getting any urine out of hissuprapubic cathetereven with flushing. A urinary catheter was placed through the penis with good urine return. Blood cultures 2 as his white blood cell count is quite elevated. Urine culture pending his urine is clearly infectious. vanco and zosyn started. I called and spoke with DR. Foy at [facility] ER COURSE findings and concerns were relayed to her. She accepted the patient in [facility] at this time. Departure - Departure Time of Disposition: 10:00 Disposition: DC/Tfer to [facility] 02 Clinical Impression: Sepsis associated hypotension, Right sided weakness Rhabdomyolysis Qualifiers: Rhabdomyolysis type: non-traumatic Qualified Code(s): M62.82 - Rhabdomyolysis - Discharge Information Referrals: PCP,None [Primary Care Provider] - Forms: ED Department Discharge Critical Care Note - Critical Care Note Total Time (mins): 120 Comments: 120 minutes was spent in direct care management bedside care interventions of this septic hypotensive paFamily counseling as well as repeated exams in consultation for this very ill patient. - Assessment/Plan Assessment:: Urosepsis with septic shock on vasopressors. rhabdo from unknown source critical care time right sided weakness concerning for CVA.
[2018-11-28] MEDS ORDERED: Iopamidol 612 MG/ML 75 ML Bottle IVPUSH ONE (09:27)
--- NOTE | 2018-11-28 10:41 | CT ---
Clinical history: 78-year-old male smoker with indwelling catheter and clinical "sepsis" (recent colonoscopy)..... 160 pound patient with "dirty" urine and abnormally elevated serum WBC (20,400). Scan technique: Volume acquisition of data emergency CT scan abdomen and pelvis (75 cc nonionic Isovue contrast at 2 cc/s via injector) while the patient was lying supine on the Siemens multi slice scanner [place], [place]. All data archived in the PACS system for storage, reformatting axial/sagittal/coronal planes and study. Respiratory motion artifact. Interpretation: Abnormal. 1. Evidence of orthopedic fusion lower lumbar spine and sacrum. Suprapubic catheter with inflated balloon dome of the bladder. 2. *Abnormal inflammatory "dirty" peritoneal fat in the mid epigastrium adjacent to the transverse colon. No abscess. 3. Gallbladder, liver, stomach, spleen, pancreas, and adrenal glands unremarkable. 4. *Several benign-appearing cortical cysts both kidneys. No nephrolithiasis either kidney but ...discrete 3.7 mm diameter intraluminal calculus distal left ureter with associated abnormal dilatation (obstruction) of the ipsilateral ureter and left renal pelvis. 5. No pelvic or abdominal mass lesion, signs of mechanical bowel obstruction, ascites or free intraperitoneal air. Conclusion: High-grade obstruction distal left ureter (ureterolith). Acute peritonitis midepigastrium. Lumbar fusion. Indwelling suprapubic urinary bladder catheter.
== END 2018-11-28 10:39 ==
LOC: DL.ED 07:21
DX: A41.9 Sepsis, unspecified organism (principal); I95.9 Hypotension, unspecified; M62.82 Rhabdomyolysis; I48.91 Unspecified atrial fibrillation; I11.0 Hypertensive heart disease with heart failure; I50.9 Heart failure, unspecified; E78.00 Pure hypercholesterolemia, unspecified; E03.9 Hypothyroidism, unspecified; Z79.899 Other long term (current) drug therapy; Z79.01 Long term (current) use of anticoagulants
CPT/HCPCS: 36415; 36600; 70450; 71045; 74177; 80053; 80162; 81001; 82009; 82140; 82550; 82803; 83605; 83735; 84484; 85025; 85610; 86140; 87040; 93005; 96365; 96367; 96368; 99285; J2543; J3370; J7050; J7060; J7120; Q9967; 87077; 87186

== ENCOUNTER 2019-04-11 13:53 | Emergency (ER) | payer MEDICARE, OTHER ==
[2019-04-11] MEDS ORDERED: Diatrizoate Meglumine 18% w/v 300 ML Bottle IURETH ONE (15:12)
[2019-04-11] MEDS ORDERED: Acetaminophen 325 MG Tab PO ONE (15:13)
[2019-04-11] MEDS ORDERED: traMADol 50 MG Tab PO ONE (15:13)
[2019-04-11 15:14] LABS: ANION GAP 14.9
--- NOTE | 2019-04-11 16:07 | CT ---
Clinical history: 78-year-old male with leaking "suprapubic urinary bladder" catheter. Catheter that reportedly has been present present for week was "repositioned with extreme discomfort to patient last night" and has been "leaking" since. TECHNIQUE: Volume acquisition of data from the abdomen and pelvis obtained after attempting to inject 35 cc nonionic Isovue contrast (retrograde fashion) through the midline, lower anterior abdominal wall ("suprapubic") catheter patient was lying supine on the Siemens multi slice CT scanner [place], [place]. Interpretation: Abnormal. 1. *Urinary catheter positioned midway between the umbilicus and top of the pubic ramus appears to "cut" through the muscle, dome of the bladder, with the tip positioned posteriorly in the upper pelvis near the left common iliac artery..... outside urinary bladder lumen 2. Symmetrically distended urinary bladder. No appreciable intraperitoneal or retroperitoneal fluid collections. 3. Gallbladder, unenhanced liver, stomach, pancreas, and adrenal glands unremarkable. Tiny cortical cysts both kidneys. No nephrolithiasis or signs of obstructive uropathy i.e. no pyelocaliectasis. 4. Large stool impaction in the rectum but no abnormal dilatation of the proximal colon or small bowel (no air-fluid levels). 5. No pelvic or abdominal mass lesion and no signs of retroperitoneal lymphadenopathy, ascites or free intraperitoneal air. 6. Multiple tiny calcifications spleen. Consultation normal caliber abdominal aorta and iliac arteries. 7. Multilevel lower lumbar spinal fusion (Covarrubias rods anchored bolts posteriorly at 4 levels). CONCLUSION: Abnormally positioned "suprapubic urinary" catheter, in the pelvis, outside the bladder lumen. .Critical exam: ER provider notified at 1550 hours on 11 Apr 2019.
[2019-04-11] MEDS ORDERED: Piperacillin/Tazobactam 3.375 GM in Sodium Chloride 0.9% 100 ML IV ONE (17:04)
--- NOTE | 2019-04-11 17:34 | CT ---
Clinical history: 78-year-old male with suprapubic catheter "extending across the dome of the urinary bladder (through muscle) and outside the lumen, posteriorly in the pelvis on the left" (CT exam earlier today) has now been pulled back 3 cm. Scan technique: Volume acquisition of data unenhanced CT scan of the pelvis obtained with patient lying supine on the Siemens multi slice scanner [place], [place]. No contrast. All data in PACs system. Interpretation: Catheter has been pulled back (Menendez balloon inflated in the dome of the urinary bladder) but the catheter tip remains 2.5 cm outside the wall of the uterus, posteriorly, adjacent to the sigmoid colon. No new pelvic fluid accumulation (urine or blood). Urinary bladder remains symmetrically distended (full). No free intraperitoneal air. CONCLUSION: Abnormal suprapubic Menendez catheter placement.
--- NOTE | 2019-04-16 19:43 | EDM.PDOC ---
ED HPI GENERAL MEDICAL PROBLEM - General Chief Complaint: Abdominal Pain Stated Complaint: BLADDER INFECTION Time Seen by Provider: 04/11/19 14:00 Source of Information: Reports: Patient, Family, Provider (Dr. Nichole), RN, RN Notes Reviewed History Limitations: Reports: Altered Mental Status - History of Present Illness INITIAL COMMENTS - FREE TEXT/NARRATIVE: Pt to ER from [facility] with c/o pain with adjustment of suprapubic catheter. Catheter has not been draining urine well, and when nursing staff attempts to reposition the catheter the patient has severe pain. Patient of Dr. Nichole, who called report. Onset: Today, Sudden - Related Data Allergies Allergy/AdvReac Type Severity Reaction Status Date / Time No Known Allergies Allergy Verified 04/11/19 14:14 Home Meds: Home Meds Warfarin [Coumadin] 3 mg PO DAILY 03/20/18 [History] Levothyroxine [Synthroid] 50 mcg PO DAILY 04/05/18 [History] Acetaminophen [Tylenol Extra Strength] 500 mg PO TID 04/11/19 [History] Divalproex Sodium 125 mg PO TID 04/11/19 [History] Iron Polysaccharide Complex [Iferex 150] 150 mg PO DAILY 04/11/19 [History] Mirtazapine 15 mg PO BEDTIME 04/11/19 [History] OLANZapine [Olanzapine] 15 mg PO BEDTIME 04/11/19 [History] Ranitidine [Zantac] 150 mg PO DAILY 04/11/19 [History] Sennosides/Docusate Sodium [Senna-S] 1 tab PO DAILY 04/11/19 [History] Simvastatin 10 mg PO BEDTIME 04/11/19 [History] Thiamine HCl 100 mg PO DAILY 04/11/19 [History] traMADol [Ultram] 50 mg PO BID 04/11/19 [History] Past Medical History HEENT History: Reports: Impaired Vision, Other (See Below) Other HEENT History: HEARING AIDE LEFT EAR. READING GLASSES Cardiovascular History: Reports: Afib, Heart Failure, High Cholesterol, Hypertension Respiratory History: Reports: None Gastrointestinal History: Reports: Chronic Constipation, Colon Polyp, Hemorrhoids Genitourinary History: Reports: BPH, Other (See Below) Other Genitourinary History: Has suprapubic catheter Musculoskeletal History: Reports: Arthritis Neurological History: Reports: CVA Psychiatric History: Reports: None Endocrine/Metabolic History: Reports: Hypothyroidism Hematologic History: Reports: Anemia, Blood Transfusion(s), Iron Deficiency Immunologic History: Reports: None Oncologic (Cancer) History: Reports: Other (See Below) Other Oncologic History: SKIN Dermatologic History: Reports: None - Infectious Disease History Infectious Disease History: Reports: Measles, Mumps - Past Surgical History Head Surgeries/Procedures: Reports: None HEENT Surgical History: Reports: Other (See Below) Other HEENT Surgeries/Procedures: UPPER AND LOWER DENTRUES Respiratory Surgical History: Reports: None GI Surgical History: Reports: Other (See Below) Other GI Surgeries/Procedures: FLEX SIGMOIDOSCOPY Male Surgical History: Reports: Other (See Below) Other Male Surgeries/Procedures: chronic suprapubic catheter Endocrine Surgical History: Reports: None Neurological Surgical History: Reports: Lumbar Spine Musculoskeletal Surgical History: Reports: Other (See Below) Other Musculoskeletal Surgeries/Procedures:: back surgery in 03/2018 Oncologic Surgical History: Reports: None Dermatological Surgical History: Reports: None Social & Family History - Family History Family Medical History: Noncontributory - Caffeine Use Caffeine Use: Reports: Coffee Other Caffeine Use: COFFEE 1 CUP DAILY ED ROS GENERAL - Review of Systems Review Of Systems: ROS reveals no pertinent complaints other than HPI. ED EXAM, RENAL/ - Physical Exam Exam: See Below Exam Limited By: Altered Mental Status General Appearance: Alert, Moderate Distress Eye Exam: Bilateral Eye: EOMI, Normal Inspection Ears: Normal External Exam, Hearing Grossly Normal Nose: Normal Inspection Throat/Mouth: Normal Inspection, Normal Voice, No Airway Compromise Head: Atraumatic, Normocephalic Neck: Normal Inspection, Limited Range of Motion Respiratory/Chest: No Respiratory Distress, Decreased Breath Sounds, Crackles ( bases bilaterally) Cardiovascular: Normal Peripheral Pulses, Regular Rate, Rhythm, No Gallop, No JVD, No Murmur, No Rub GI/Abdominal: Normal Bowel Sounds, Rigid, Tender (Male) Exam: Deferred Rectal (Males) Exam: Deferred Back Exam: Normal Inspection, Decreased Range of Motion Extremities: Normal Inspection, Limited Range of Motion Neurological: Alert, Disoriented (at times) Psychiatric: Anxious Skin Exam: Warm, Dry, Intact, Normal Color, No Rash Lymphatic: No Adenopathy Course - Vital Signs Last Recorded V/S: Last Vital Signs Temp 96.9 F 04/11/19 18:39 Pulse 117 H 04/11/19 18:39 Resp 14 04/11/19 18:39 BP 100/79 04/11/19 18:39 Pulse Ox 93 L 04/11/19 18:39 - Orders/Labs/Meds Labs: Laboratory Tests 04/11/19 04/11/19 04/11/19 Range/Units 14:37 14:37 14:37 WBC 9.7 (5.0-10.0) 10^3/uL RBC 3.28 L (4.6-6.2) 10^6/uL Hgb 9.3 L D (14.0-18.0) g/dL Hct 30.3 L (40.0-54.0) % MCV 92.4 (80-100) fL MCH 28.4 (27.0-34.0) pg MCHC 30.7 L (33.0-35.0) g/dL Plt Count 225 D (150-450) 10^3/uL Neut % (Auto) 70.9 (42.2-75.2) % Lymph % (Auto) 13.7 L (20.5-50.1) % Dickey % (Auto) 10.7 H (2-8) % Eos % (Auto) 4.1 H (1.0-3.0) % Baso % (Auto) 0.6 (0.0-1.0) % PT 14.2 H (9.0-12.0) SEC INR 1.4 H (0.9-1.2) Sodium 136 (135-145) mmol/L Potassium 4.9 D (3.6-5.0) mmol/L Chloride 102 (101-111) mmol/L Carbon Dioxide 24.0 (21.0-31.0) mmol/L Anion Gap 14.9 BUN 33 H (7-18) mg/dL Creatinine 1.2 D (0.6-1.3) mg/dL Est Cr Clr Drug Dosing 47.43 mL/min Estimated GFR (MDRD) 59 BUN/Creatinine Ratio 27.50 Glucose 125 H (74-105) mg/dL Calcium 8.5 (8.4-10.2) mg/dl Total Bilirubin 0.7 (0.2-1.0) mg/dL AST 29 (10-42) IU/L ALT 27 (10-60) IU/L Alkaline Phosphatase 103 (42-121) IU/L Total Protein 7.0 (6.7-8.2) g/dl Albumin 2.9 L (3.2-5.5) g/dl Globulin 4.1 Albumin/Globulin Ratio 0.71 Urine Color (YELLOW) Urine Appearance (CLEAR) Urine pH (5.0-9.0) Ur Specific Dexter (1.005-1.030) Urine Protein (NEGATIVE) Urine Glucose (UA) (NEGATIVE) Urine Ketones (NEGATIVE) Urine Occult Blood (NEGATIVE) Urine Nitrite (NEGATIVE) Urine Bilirubin (NEGATIVE) Urine Urobilinogen (0.2-1.0) mg/dL Ur Leukocyte Esterase (NEGATIVE) Urine RBC Urine WBC Ur Epithelial Cells Amorphous Sediment Urine Bacteria Urine Mucus 04/11/19 Range/Units 15:45 WBC (5.0-10.0) 10^3/uL RBC (4.6-6.2) 10^6/uL Hgb (14.0-18.0) g/dL Hct (40.0-54.0) % MCV (80-100) fL MCH (27.0-34.0) pg MCHC (33.0-35.0) g/dL Plt Count (150-450) 10^3/uL Neut % (Auto) (42.2-75.2) % Lymph % (Auto) (20.5-50.1) % Dickey % (Auto) (2-8) % Eos % (Auto) (1.0-3.0) % Baso % (Auto) (0.0-1.0) % PT (9.0-12.0) SEC INR (0.9-1.2) Sodium (135-145) mmol/L Potassium (3.6-5.0) mmol/L Chloride (101-111) mmol/L Carbon Dioxide (21.0-31.0) mmol/L Anion Gap BUN (7-18) mg/dL Creatinine (0.6-1.3) mg/dL Est Cr Clr Drug Dosing mL/min Estimated GFR (MDRD) BUN/Creatinine Ratio Glucose (74-105) mg/dL Calcium (8.4-10.2) mg/dl Total Bilirubin (0.2-1.0) mg/dL AST (10-42) IU/L ALT (10-60) IU/L Alkaline Phosphatase (42-121) IU/L Total Protein (6.7-8.2) g/dl Albumin (3.2-5.5) g/dl Globulin Albumin/Globulin Ratio Urine Color Yellow (YELLOW) Urine Appearance Slightly cloudy (CLEAR) Urine pH 8.5 (5.0-9.0) Ur Specific Dexter 1.020 (1.005-1.030) Urine Protein >=300 H (NEGATIVE) Urine Glucose (UA) 100 H (NEGATIVE) Urine Ketones Negative (NEGATIVE) Urine Occult Blood Moderate H (NEGATIVE) Urine Nitrite Positive H (NEGATIVE) Urine Bilirubin Negative (NEGATIVE) Urine Urobilinogen 0.2 (0.2-1.0) mg/dL Ur Leukocyte Esterase Small H (NEGATIVE) Urine RBC TNP Urine WBC TNP Ur Epithelial Cells TNP Amorphous Sediment TNP Urine Bacteria TNP Urine Mucus TNP Meds: Medications Discontinued Medications Generic Name Dose Route Start Last Admin Trade Name Freq PRN Reason Stop Dose Admin Acetaminophen 650 mg 04/11/19 15:13 04/11/19 15:54 Tylenol PO 04/11/19 15:14 650 mg NOW ONE Administration Diatrizoate Meglumine 300 ml 04/11/19 15:12 Cystografin-Dilute 18% IURETH 04/11/19 15:13 ONETIME ONE Piperacillin Sod/Tazobactam 100 mls @ 200 mls/hr 04/11/19 17:04 04/11/19 17: 37 Sod 3.375 gm/ Sodium Chloride IV 04/11/19 17:33 200 mls/hr ONETIME ONE Administration Tramadol HCl 50 mg 04/11/19 15:13 04/11/19 15:54 Ultram PO 04/11/19 15:14 50 mg ONETIME ONE Administration - Radiology Interpretation Free Text/Narrative:: Abdomen/Pelvis CT: Abnormally positioned "suprapubic urinary" catheter, in pelvis, outside the bladder lumen. Attempt to reposition suprapubic catheter. Pelvis CT post reposition: Continued abnormal suprapubic valentino catheter placement. - Re-Assessments/Exams Free Text/Narrative Re-Assessment/Exam: 04/16/19 19:[address] Kinsey who gives instruction to attempt to reposition the catheter. This was done and when held in place drained about 250cc of urine from the bladder. Once balloon inflated, obstruction of urine again. Dr. Kinsey aware. Accepts patient for transfer to [facility]. Departure - Departure Time of Disposition: 19:04 Disposition: DC/Tfer to Acute Hospital 02 Condition: Poor Clinical Impression: Complication, suprapubic catheter obstruction Qualifiers: Encounter type: initial encounter Qualified Code(s): T83.090A - Other mechanical complication of cystostomy catheter, initial encounter Abdominal pain Qualifiers: Abdominal location: unspecified location Qualified Code(s): R10.9 - Unspecified abdominal pain - Discharge Information *PRESCRIPTION DRUG MONITORING PROGRAM REVIEWED*: No *COPY OF PRESCRIPTION DRUG MONITORING REPORT IN PATIENT ELOISA: No Referrals: PCP,None [Primary Care Provider] - Forms: ED Department Discharge
== END 2019-04-11 19:05 ==
LOC: DL.ED 13:53
DX: T83.090A Other mechanical complication of cystostomy catheter, initial encounter (principal); R10.9 Unspecified abdominal pain; I11.0 Hypertensive heart disease with heart failure; I50.9 Heart failure, unspecified; I48.91 Unspecified atrial fibrillation; M19.90 Unspecified osteoarthritis, unspecified site; E03.9 Hypothyroidism, unspecified; Z79.01 Long term (current) use of anticoagulants; Z79.899 Other long term (current) drug therapy
CPT/HCPCS: 36415; 72192; 74176; 80053; 81001; 85025; 85610; 87086; 87088; 87186; 96365; 99285-25; A9270-GY; J2543; J7050; Q9958